=== PATIENT | female | born 1965 | race Caucasian/White ===

== ENCOUNTER 2018-02-08 20:03 | Emergency (ER) | payer MEDICAID, SELFPAY ==
[2018-02-08 20:20] VITALS: BP 127/77; PULSE 99; RESP 16; TEMP 37.2; O2SAT 95
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
[2018-02-08] MEDS: predniSONE 20 MG TAB 60 MG PO (20:34)
[2018-02-08] MEDS: LEVOFLOXACIN 500 MG, LEVOFLOXACIN 250 MG 750 MG PO (20:35)
[2018-02-08 20:36] VITALS: RESP 4; RESP 8
[2018-02-08] MEDS: Albuterol 2.5 MG/3 ML INH SOLN VIAL UPD (20:36)
[2018-02-08 21:20] VITALS: BP 125/78; PULSE 96; RESP 16; O2SAT 95
== END 2018-02-08 21:20 | disposition home or self-care (01) ==
PROVIDERS: Emergency Provider Emergency Medicine; PCP Internal Medicine
DX: J44.1 Chronic obstructive pulmonary disease with (acute) exacerbation (principal); F17.210 Nicotine dependence, cigarettes, uncomplicated
CPT/HCPCS: 94640; 99283; J7512; J7613

== ENCOUNTER 2018-06-06 16:59 | Emergency (ER) | payer MEDICAID, SELFPAY ==
[2018-06-06 17:03] VITALS: BP 154/82; PULSE 76; RESP 20; TEMP 37.1; O2SAT 96
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
--- NOTE | 2018-06-06 17:33 | DI.RAD_ITS ---
SYMPTOM/DIAGNOSIS: REDNESS, PAIN, ? OSTEOMYELITIS RIGHT TIB-FIB: Comparison is made with right ankle dated 07/09/15. No fracture is identified. There is no evidence of bony erosions. The patient is status post amputation at the level of the talocalcaneal joint. IMPRESSION: No acute abnormality.
[2018-06-06 18:09] LABS: HCT 47.8 % (36.0-46.0); Mean Corp. HGB Concentration 33.5 g/dL (32.0-36.0); Mean Corpuscular Hemoglobin 30.9 pg (27.0-33.0); Mean Corpuscular Volume 92.5 fL (80-95); Mean Platelet Volume 10.3 fL (8.0-11.0); Platelet Count 308 x1000/uL (130-400); RBC 5.17 m/cumm (4.00-5.20); RBC Distribution Width 14.3 % (11.7-14.6); White Blood Cell Count 10.06 k/cumm (4.4-10.8)
[2018-06-06 18:19] LABS: Anion Gap 10.4 mmol/L (3-11); BUN 12 mg/dL (7-18); C-Reactive Protein 1.49 mg/dL (0.0-0.3); CO2 26.6 mmol/L (21.0-32.0); CREATININE 0.87 mg/dL (0.55-1.02); Calcium 9.3 mg/dL (8.5-10.1); Chloride 102 mmol/L (98-107); Glucose 96 mg/dL (70-100); Potassium 3.8 mmol/L (3.5-5.1); Sodium 139 mmol/L (136-145)
[2018-06-06] MEDS: Clindamycin 150 MG CAP 450 MG PO ×2 (18:29→20:42)
[2018-06-06] MEDS: oxyCODONE 5 MG TAB PO (18:29)
--- NOTE | 2018-06-06 18:33 | NUR.NOTE ---
To Xray with Alessandra Guido Note:
[2018-06-06 18:45] LABS: ESR 20 MM/HR (0-30)
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
[2018-06-06 19:48] VITALS: BP 116/67; PULSE 68; RESP 14; TEMP 36.3; O2SAT 96
[2018-06-06] MEDS: Clindamycin 150 MG CAP (20:41)
[2018-06-06] MEDS: Clindamycin 300 MG CAP (20:43)
[2018-06-06] MEDS: oxyCODONE 5 MG TAB 10 MG PO (20:46)
== END 2018-06-06 20:53 | disposition home or self-care (01) ==
LOC: ER 20:39
PROVIDERS: Emergency Provider Physician Assistant; PCP Internal Medicine
DX: L03.115 Cellulitis of right lower limb (principal); Z89.431 Acquired absence of right foot
CPT/HCPCS: 36415; 80048; 85027; 85652; 99283; 73590; 86140

== ENCOUNTER 2019-03-19 00:47 | Outpatient (CLI) | payer MEDICAID, SELFPAY ==
--- NOTE | 2019-03-19 13:15 | DI.MAMMO_ITS ---
EXAM: MG MAMMO SCREENING CLINICAL HISTORY: SCREENING, Z12.39. TECHNIQUE: Mammograms were interpreted according to the usual protocol including computer analysis w [employer] CAD system, tomosynthesis and C-view imaging. COMPARISON: No exams were available for comparison FINDINGS: The breast tissue is of moderate radiodensity. There is no evidence of a mass. There are no suspici ous calcifications. When compared with prior examinations, there has been no significant interval ch kortney. Follow-up surveillance with annual screening mammography is recommended. IMPRESSION: No evidence of malignancy, category 1. This is a BI-RADS category B study.
== END 2019-03-19 01:07 ==
PROVIDERS: PCP Internal Medicine; Visit Provider Internal Medicine
DX: Z12.31 Encounter for screening mammogram for malignant neoplasm of breast (principal)
CPT/HCPCS: 77063; 77067

== ENCOUNTER 2019-03-21 13:37 | Outpatient (REF) | payer MEDICAID, SELFPAY ==
[2019-03-21 21:50] LABS: TSH (W/Ref FT4) 1.89 uIU/mL (0.36-3.74)
== END 2019-03-21 13:57 ==
LOC: NCHCN 13:37
PROVIDERS: PCP Internal Medicine; Visit Provider Nurse Practitioner Family
DX: E03.9 Hypothyroidism, unspecified (principal); L02.91 Cutaneous abscess, unspecified; J42 Unspecified chronic bronchitis
CPT/HCPCS: 84443

== ENCOUNTER 2019-04-01 07:24 | Emergency (ER) | payer MEDICAID, SELFPAY ==
[2019-04-01 07:33] VITALS: BP 137/80; PULSE 114; RESP 16; TEMP 36.2; O2SAT 99
--- NOTE | 2019-04-01 07:59 | ED.GENADUL_ITS ---
Discharge Plan Disposition Patient Disposition: HOME Condition: Fair Discharge Details Chief Complaint: Abd Prob Clinical Impression: Abdominal pain Primary Care Provider: Dionicio Grimm ED Provider: Noa Carter Home Meds and New Rx's Prescriptions: Continued meloxicam [Mobic] 7.5 MG tablet 15 mg PO DAILY RF: 0 gabapentin 400 MG capsule 800 mg PO TID RF: 0 omeprazole 20 MG capsule,delayed release(DR/EC) 1 cap PO DAILY RF: 0 fluticasone propionate [Flonase] 16 GM spray,suspension 1 bottle NS DAILY RF: 0 Zyrtec 10 MG capsule 10 mg PO DAILY RF: 0 albuterol sulfate [Proventil HFA] 1 PUFF HFA aerosol inhaler 2 puff Inhalation .Q4-6H PRN RF: 0 ropinirole 0.25 MG tablet 1 tab PO HS RF: 0 paroxetine HCl 30 MG tablet 30 mg PO DAILY RF: 0 bupropion HCl [Wellbutrin XL] 300 mg Tablet Extended Release 24 Hr 300 mg PO DAILY RF: 0 Spiriva with HandiHaler 18 mcg Capsule, W/Inhalation Device 18 mcg Inhalation PRN PRNRF: 0 Discharge Instructions Instructions: Abdominal Pain (ED) Additional Instructions: Your imaging and labs are reassuring today. Encourage hydration. Tylenol and ibuprofen as needed for discomfort. May try Gas-X to help with bloating. Please follow-up with primary care at the end of the week for reevaluation. If you develop fever/chills, increased pain, inability stay hydrated or other new/worsening symptoms please seek care urgently once again. Referrals: Dionicio Grimm MD [Primary Care Provider] - Medical Decision Making Patient is a 53-year-old female presenting today with chief complaint of abdominal discomfort that began 2 days ago. She is a history of anxiety, depression, diverticulitis, is an active smoker. She reports that this feels like diverticulitis. States that the pain is migratory which is. It is not made worse by eating, is not positional, is not worse with certain times a day. States that she did have 5 bowel movements yesterday but states that the switch from soft to more formed. Denies any liquidy bowel movements. Was on antibiotics last week for bronchitis. She does not know what antibiotic she was on. States that yesterday she did note read and her stool was concern for possible GI bleed as well. Hemoccult negative, normal rectal exam. Patient intially declined any analgesics, now requesting pain medication. Will give IV morphine. Review the labs. Patient has a slight white count of 11.06. BUN slightly elevated at 19. Glucose 123. Patient is intermittently been high like this historically. No findings on the urinalysis suggest infection. Contacted by the radiologist to review the CT scan and advised that there is no acute abnormalities noted. Discussed these findings with the patient's. Advised that she has had a change in her bowel habits, she may have infectious etiology. It is not watery diarrhea and does not seem very frequent, I do not feel that this is a high risk to be C. difficile. She will have close follow-up with primary care is appropriate. Advised Tylenol and ibuprofen as needed for discomfort. Advised against any narcotics at this point as this will Likely increase her symptoms. Advised she may try simethicone to help with the bloating sensation and gas pains. She was given strict return precautions. All other questions and concerns were addressed and she is in agreement this plan. HPI General Mode of arrival: ambulatory . Date/Time Provider Initiated Documentation: 04/01/19 07:51 . Limitations to Documentation: no limitations . Information obtained by: patient and RN notes reviewed . History of Present Monico pradhan 53 year old F presents to the emergency department with the chief complaint of abdominal pain, described as moderate, with intensity rated at 8. Quality is described as aching, and is localized to the abdomen. Patient reports no radiation. Patient started experiencing this day(s) (2) and it has been constant. No relieving factors improve symptom(s), No exacerbating factors reported . Patient notes diaphoresis and nausea/vomiting (intermittent nausea, no vomiting, currently no nausea); denies chest pain, cough, fever/chills, loss of appetite, rash, shortness of breath and weakness. Patient did receive the following treatments prior to arrival, none Related Data Home Medications Medication Instructions Recorded Confirmed fluticasone propionate [Flonase] 1 bottle NS DAILY 09/12/13 04/01/19 omeprazole 1 cap PO DAILY 09/12/13 04/01/19 Zyrtec 10 mg PO DAILY 03/09/15 04/01/19 meloxicam [Mobic] 15 mg PO DAILY tab-cap 07/09/15 04/01/19 albuterol sulfate [Proventil HFA] 2 puff INHALATION .Q4-6H PRN 08/28/15 04/01/19 paroxetine HCl 30 mg PO DAILY 08/28/15 04/01/19 ropinirole 1 tab PO HS 08/28/15 04/01/19 gabapentin 800 mg PO TID tab-cap 10/05/15 04/01/19 Spiriva with HandiHaler 18 mcg INHALATION PRN PRN 06/06/18 04/01/19 bupropion HCl [Wellbutrin XL] 300 mg PO DAILY 06/06/18 04/01/19 Allergies Allergy/AdvReac Type Severity Reaction Status Date / Time Penicillins Allergy Intermediate Hives Unverified 04/01/19 07:35 venlafaxine AdvReac Intermediate bad night Unverified 04/01/19 07:35 walker General Stated Complaint: Abd Prob AUBREY: 3 Review of Systems Constitutional Constitutional: Reports as per HPI, Denies chills, Denies fatigue, Denies fever(s) and Denies headache(s) ENT Ears, Nose, Mouth, and Throat: Denies headache(s) Cardiovascular Cardiovascular: Reports as per HPI, Denies chest pain and Denies dyspnea Respiratory Respiratory: Reports as per HPI, Denies cough and Denies dyspnea Gastrointestinal Gastrointestinal: Reports as per HPI Musculoskeletal Musculoskeletal: Reports as per HPI and Denies back pain Integumentary/Breasts Skin/Breast: Reports as per HPI and Denies rash Neurologic Neurologic: Reports as per HPI and Denies headache(s) Endocrine Endocrine: Denies fatigue [facility] Medical History Anxiety Depression Diverticulitis 09/12/13 seen in [facility] ED. Dx by CT. On Cipro and Flagyl. Menstrual spotting s/p [employer] endometrial ablation 01/2010 for menorrhagia. Has had brown discharge 4-5x/mo since then. Nasal polyp Tobacco use disorder Surgical History section X2. From chart record, no date.HE Colonoscopy - MAC (10/31/16) Endometrial Ablation 01/2010 [employer]. EP Excision Nodules (08/02/10) PIP joint R middle and ring fingers Ligation of fallopian tube from chart records, no date.HE Tonsillectomy From chart records, no date.HE Social History Smoking/Tobacco Use Status: Current every day Tobacco Type: cigarettes Drug use: Daily Do you feel safe in your relationship?: Yes Exam Const General: cooperative, healthy appearing, comfortable, no acute distress and well developed Nutritional Appearance: average body habitus and well nourished Orientation: alert and awake [facility] Head: normal to inspection Mouth: moist mucous membranes Resp Effort & Inspection: normal respiratory effort, able to speak in complete sentences and no respiratory distress Auscultation: clear to auscultation bilaterally, no rales, no rhonchi and no wheezes Cardio Rate: regular rate Rhythm: regular rhythm Heart Sounds: S1 normal and S2 normal GI Inspection: normal to inspection, no edema, non-distended, no incisions and no obesity Palpation: soft, no hepatosplenomegaly, not firm, no guarding, no masses and nontender Percussion: normal to percussion Auscultation: normal bowel sounds Rectal Exam - female: visual inspection normal, normal sphincter tone, No abnormal stool, No fecal impaction, No fissure, No heme positive stool, heme negative stool, No hemorrhoids, No laceration and No tenderness Back/Spine/Pelvis Back: no CVA tenderness Skin General skin exam: no rashes or lesions noted Trauma: no lacerations or abrasions Neuro General: alert and awake Cognition: normal cognition Speech: speech normal Gait: normal gait Extrem General: normal to inspection, no pedal edema, no calf tenderness and normal gait Psych Appearance: grossly normal and well kempt Mental Status: mental status grossly normal Speech and Movement: speech and movement normal Course Vital Signs Vital signs: Vital Signs Temperature 36.2 C L 04/01/19 07:33 Pulse 114 H 04/01/19 07:33 Respiratory Rate 16 04/01/19 07:33 Blood Pressure 137/80 04/01/19 07:33 Pulse Oximetry 99 04/01/19 07:33 Temperature 36.2 C L 04/01/19 07:33 Temperature Source Skin 04/01/19 07:33 Pulse 114 H 04/01/19 07:33 Respiratory Rate 16 04/01/19 07:33 Respiratory Effort Non-Labored 04/01/19 07:33 Blood Pressure 137/80 04/01/19 07:33 Blood Pressure Position Sitting 04/01/19 07:33 Pulse Oximetry 99 04/01/19 07:33 Oxygen Delivery Method Room Air 04/01/19 07:33 Oxygen Flow Rate 0 04/01/19 07:33 Pain Level 8 04/01/19 07:33
[2019-04-01] MEDS: Normal Saline 1,000 ML 1000 ML IV (08:00)
--- NOTE | 2019-04-01 08:08 | DI.CT_ITS ---
EXAM: CT ABDOMEN PELVIS W CLINICAL HISTORY: abdominal pain, hx of diverticulitis. TECHNIQUE: Imaging Protocol: Axial computed tomography images with coronal and sagittal reformatted images were created and reviewed CONTRAST MATERIAL: Intravenous: Omnipaque 350 Contrast volume:100 mL contrast route:IV - Oral: Yes COMPARISON: ABD PELVIS WITH CONTRAST from 11/29/2017 FINDINGS: ABDOMEN: Lung Bases: Normal where visualized. Liver: Normal density. There is again seen and enhancing mass in the left lobe of the liver consisten t with a benign hepatic hemangioma. No suspicious hepatic mass is seen total superior mesenteric and splenic veins are patent Gallbladder and biliary tract: No radiodense calculus or dilation. Pancreas: Normal density, no abnormal calcifications or inflammatory process. Spleen: Normal. Kidneys: Normal size, contour and axis. No radiodense stones or obstructive uropathy. There are tiny hypodensities present in the kidneys. They are too small for further characterization but likely ref lect small cysts. No suspicious renal masses are present. Adrenal glands: No masses seen. Abdominal Aorta: There is mild atherosclerosis present. No aneurysmal dilatation is present. No sig nificant abdominal or pelvic adenopathy is identified. PELVIS: Bladder: Symmetric distention, no gross wall thickening. Note is again made of a diverticulum arising from the anterior superior aspect of the urinary bladder. The reproductive organs are unremarkable. Bowel: No obstruction or bowel wall thickening. There diverticulosis of the colon but no evidence of acute diverticulitis. A normal appendix is visualized. Peritoneal cavity: No ascites, collection or mesenteric inflammatory response. Bones: Multilevel degenerative changes are present in the spine. Impression: Colonic diverticulosis but no evidence of acute diverticulitis. No evidence of an acute abdomen. The findings were discussed with the emergency department on the date of the examination. DATA REPOSITORY: All CT scans at this facility are submitted to the National Radiology Data Registry (NRDR) Dose Index Registry (DIR) with the [employer] ([employer]). RADIATION OPTIMIZATION: All CT scans at this facility use at least one of these dose optimization te chniques: automated exposure control; mA and/or kV adjustment per patient size (includes targeted exa ms where dose is matched to clinical indication); or iterative reconstruction.
[2019-04-01 08:25] LABS: Abs Immature Grans 0.02 k/cumm (0.0-0.09); Absolute Basophil Count 0.02 k/cumm (0.0-0.2); Absolute Eosinophil Count 0.12 k/cumm (0.0-0.7); Absolute Monocyte Count 0.73 k/cumm (0.11-0.7); Absolute Neutrophil Count 7.76 k/cumm (1.2-6.7); Basophils % 0.2; Eosinophils % 1.1; HGB 15.7 g/dL (12.0-15.5); Immature Grans % 0.2; Lymphocytes % 21.7; Mean Corp. HGB Concentration 32.7 g/dL (32.0-36.0); Mean Corpuscular Hemoglobin 30.3 pg (27.0-33.0); Mean Corpuscular Volume 92.5 fL (80-95); Mean Platelet Volume 11.2 fL (8.0-11.0); Monocytes % 6.6; Neutrophils % 70.2; Platelet Count 328 x1000/uL (130-400); RBC 5.19 m/cumm (4.00-5.20); RBC Distribution Width 14.5 % (11.7-14.6); White Blood Cell Count 11.06 k/cumm (4.4-10.8)
[2019-04-01] MEDS: Normal Saline Flush 10 ML SYR IVP ×2 (08:44→09:27)
[2019-04-01 08:45] VITALS: BP 150/79; PULSE 79; RESP 16; O2SAT 100
[2019-04-01 09:01] LABS: ALT 26 U/L (14-59); AST 15 U/L (15-37); Albumin 3.6 g/dL (3.4-5.0); Alkaline Phosphatase 86 U/L (46-116); Anion Gap 10.1 mmol/L (3-11); BUN 19 mg/dL (7-18); CO2 24.9 mmol/L (21.0-32.0); CREATININE 0.83 mg/dL (0.55-1.02); Calcium 8.8 mg/dL (8.5-10.1); Chloride 107 mmol/L (98-107); Glucose 123 mg/dL (70-100); Lipase 303 U/L (73-393); Sodium 142 mmol/L (136-145)
[2019-04-01 09:08] LABS: Bilirubin Negative (Negative); Blood Negative (Negative); Clarity Clear (Clear); Glucose Negative (Negative); Ketones Negative (Negative); Leukocyte Esterase Negative (Negative); Nitrite Negative (Negative); Urobilinogen 0.2 EU/dL (Up TO 0.2)
[2019-04-01 09:13] LABS: Bilirubin, Total 0.3 mg/dL (0.2-1.0); Total Protein 7.4 g/dL (6.4-8.2)
[2019-04-01] MEDS: Omnipaque 350 MG/ML 100 ML BTL IJ (09:26)
[2019-04-01] MEDS: Omnipaque 350 MG/ML 50 ML BTL PO (09:27)
[2019-04-01] MEDS: Breeza Beverage 473 ML BTL PO (09:27)
[2019-04-01 10:30] VITALS: BP 142/80; PULSE 74; RESP 18; TEMP 36.7; O2SAT 98
--- NOTE | 2019-04-02 07:34 | NUR.NOTE ---
Nursing Note: 0727 patient called stating that she was seen yesterday for abd pain and we did not find a cause for it. She remembered that she ate a bad lemon and was wondering if it could be food poisoning? Her abd is still sore and wonders if there is anything more she can do. Spoke with Karyna who remembered the patient. Told the patient that she could return to ED for re-evaluation. Noa Carter who evaluated her will be in later todeay if she wanted to speak with her. To call the [facility] and try to get an appt with them for follow up for another evaluation. She stated she would try the [facility]. Ericka Baker.
== END 2019-04-01 10:36 | disposition home or self-care (01) ==
PROVIDERS: Emergency Provider Physician Assistant; PCP Internal Medicine
DX: R10.9 Unspecified abdominal pain (principal)
CPT/HCPCS: 36415; 80053; 83690; 96361; 96374; 99285; 74177; 81003; 85025; 99284; J3490; Q9967

== ENCOUNTER 2019-05-31 14:40 | Emergency (ER) | payer MEDICAID, SELFPAY ==
[2019-05-31 14:43] VITALS: BP 140/69; PULSE 81; RESP 18; TEMP 36.6; O2SAT 98
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
--- NOTE | 2019-05-31 16:34 | NUR.NOTE ---
Nursing Note: Referral faxed to Podiatry, Dr. Taylor for follow up. MD note and radiology report faxed. Ericka Baker.
== END 2019-05-31 15:57 | disposition home or self-care (01) ==
PROVIDERS: Emergency Provider Emergency Medicine; PCP Internal Medicine
DX: R22.41 Localized swelling, mass and lump, right lower limb (principal); L53.9 Erythematous condition, unspecified; Z89.431 Acquired absence of right foot
CPT/HCPCS: 99283; 73630

== ENCOUNTER 2019-06-01 12:12 | Emergency (ER) | payer MEDICAID, SELFPAY ==
[2019-06-01 12:15] VITALS: BP 140/64; PULSE 90; RESP 18; TEMP 36.7; O2SAT 98
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
== END 2019-06-01 12:50 | disposition home or self-care (01) ==
PROVIDERS: Emergency Provider Physician Assistant; PCP Internal Medicine
DX: L03.115 Cellulitis of right lower limb (principal); L02.611 Cutaneous abscess of right foot
CPT/HCPCS: 99283

== ENCOUNTER 2020-02-06 15:51 | Emergency (ER) | payer MEDICAID, SELFPAY ==
[2020-02-06 15:55] VITALS: BP 176/91; PULSE 96; RESP 18; TEMP 36.2; O2SAT 97
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
[2020-02-06] MEDS: Acetaminophen 500 MG TAB 1000 MG PO (16:15)
[2020-02-06] MEDS: Hydrocortisone 1% CR 30 GM TUBE TP (16:16)
[2020-02-06 16:24] VITALS: RESP 20
[2020-02-06 16:29] LABS: Bilirubin Negative (Negative); Blood Negative (Negative); Clarity Clear (Clear); Glucose Negative (Negative); Ketones Negative (Negative); Leukocyte Esterase Small (Negative); Nitrite Negative (Negative); Specific Gravity 1.015 (1.005-1.025); Urobilinogen 0.2 EU/dL (Up TO 0.2)
--- NOTE | 2020-02-06 16:32 | DI.RAD_ITS ---
EXAM: XR LUMBAR SPINE AP, LAT CLINICAL HISTORY: L low back/SI pain TECHNIQUE: COMPARISON: No exams were available for comparison FINDINGS: Three views were obtained. There are mild degenerative changes of the SI joints bilaterally. There is some loss of height of intervertebral disc spaces at multiple levels throughout the lower thoracic and lumbar spine, particularly at L4-5 and L5-S1. There are mild hypertrophic degenerative changes of the vertebral endplates and facet joints at multiple levels. No spondylolysis or spondylolisthesis. IMPRESSION: Degenerative changes as described above. No evidence of acute fracture.
[2020-02-06 16:38] LABS: Bacteria Many HPF (Negative); Epithelial Cells Few HPF (Negative); RBC 0-2 HPF (0-2)
[2020-02-06 16:39] LABS: C & S Indicated? Yes; Casts Negative LPF (Negative); Crystals Negative HPF (Negative); Mucus Negative (Negative)
--- NOTE | 2020-02-06 17:00 | DI.VRAD_ITS ---
PROCEDURE INFORMATION: Exam: XR Lumbosacral Spine, 2 or 3 Views Exam date and time: 02/06/2020 4:32 PM Age: 54 years old Clinical indication: Other: L low back pain/si pain TECHNIQUE: Imaging protocol: XR of the lumbosacral spine, 2 or 3 views. COMPARISON: No relevant images were readily available for comparison purposes. FINDINGS: Vertebrae: 5 lumbar vertebral bodies are identified in normal height and alignment. No significant listhesis. Mild multi level degenerative changes of the lumbar spine are present. Sacrum/coccyx: Mild degenerative changes of both SI joints. Gastrointestinal tract: Nonobstructive appearance of the visualized bowel. Soft tissues: Unremarkable. Other findings: No acute fractures or dislocations. IMPRESSION: Mild degenerative changes of the lumbar spine as well as both sacroiliac joints without acute fracture or dislocation. Dictated and Authenticated by: Dionicio Donnelly MD. Ordering:RAFA Escobedo MD
== END 2020-02-06 17:26 | disposition home or self-care (01) ==
PROVIDERS: Emergency Provider Emergency Medicine; PCP Internal Medicine
DX: N39.0 Urinary tract infection, site not specified (principal); M54.5 Low back pain; S10.86XA Insect bite of other specified part of neck, initial encounter; W57.XXXA Bitten or stung by nonvenomous insect and other nonvenomous arthropods, initial encounter
CPT/HCPCS: 99283; 72100; 81003; 81015; 87086

== ENCOUNTER 2020-02-08 12:49 | Emergency (ER) | payer MEDICAID, SELFPAY ==
[2020-02-08 13:01] VITALS: BP 107/66; PULSE 96; RESP 14; TEMP 36.6; O2SAT 95
[2020-02-08] MEDS: Ketorolac 30 MG/ML VIAL IVP (13:30)
[2020-02-08] MEDS: Normal Saline Flush 10 ML SYR IVP (13:30)
[2020-02-08 13:35] LABS: Abs Immature Grans 0.04 10^3/uL (0.0-0.06); Absolute Basophil Count 0.02 10^3/uL (0.0-0.2); Absolute Eosinophil Count 0.33 10^3/uL (0.0-0.7); Absolute Lymphocyte Count 0.67 10^3/uL (1.2-3.4); Absolute Monocyte Count 0.48 10^3/uL (0.1-0.8); Absolute Neutrophil Count 8.33 10^3/uL (1.2-6.7); Basophils % 0.2; Bilirubin Negative (Negative); Blood Negative (Negative); Clarity Clear (Clear); Eosinophils % 3.3; Glucose Negative (Negative); HCT 48.9 % (36.0-46.0); HGB 15.7 g/dL (11.2-15.7); Immature Grans % 0.4; Ketones Negative (Negative); Leukocyte Esterase Trace (Negative); Lymphocytes % 6.8; MCH 29.8 pg (27.0-33.0); MCHC 32.1 % (32.0-36.0); MPV 10.4 fL (8.0-11.0); Monocytes % 4.9; Neutrophils % 84.4; Nitrite Negative (Negative); Nucleated RBC 0 %; Platelet Count 233 10^3/uL (130-400); RBC 5.26 10^6/uL (3.93-5.22); RDW 13.4 % (11.7-14.6); RDW-SD 46.1 fL; WBC 9.87 10^3/uL (4.4-10.8); pH 7.5 (5-8)
[2020-02-08 13:43] LABS: Epithelial Cells Few HPF (Negative); RBC 0-2 HPF (0-2)
[2020-02-08 13:44] LABS: Bacteria Few HPF (Negative); C & S Indicated? Yes; Casts Negative LPF (Negative); Crystals Negative HPF (Negative); Mucus Negative (Negative)
[2020-02-08 13:51] LABS: ALT 50 U/L (14-59); AST 40 U/L (15-37); Albumin 3.3 g/dL (3.4-5.0); Alkaline Phosphatase 84 U/L (46-116); Anion Gap 7.1 mmol/L (3-11); BUN 9 mg/dL (7-18); Bilirubin, Total 0.4 mg/dL (0.2-1.0); CO2 25.9 mmol/L (21.0-32.0); CREATININE 0.87 mg/dL (0.55-1.02); Calcium 8.8 mg/dL (8.5-10.1); Chloride 101 mmol/L (98-107); Glucose 147 mg/dL (74-106); Lipase 100 U/L (73-393); Potassium 3.8 mmol/L (3.5-5.1); Sodium 134 mmol/L (136-145); Total Protein 6.7 g/dL (6.4-8.2)
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
[2020-02-08 14:40] VITALS: BP 113/68; PULSE 96; RESP 16; O2SAT 95
== END 2020-02-08 14:39 | disposition home or self-care (01) ==
PROVIDERS: Emergency Provider Physician Assistant; PCP Internal Medicine
DX: M54.5 Low back pain (principal)
CPT/HCPCS: 36415; 80053; 83690; 96374; 99284; 81003; 81015; 85025; 87086; J1885

== ENCOUNTER 2020-07-21 17:01 | Outpatient (REF) | payer MEDICAID, SELFPAY ==
[2020-07-21 18:30] LABS: Bilirubin Negative (Negative); Blood Trace-intact (Negative); Clarity Cloudy (Clear); Glucose Negative (Negative); Ketones Negative (Negative); Leukocyte Esterase Small (Negative); Nitrite Positive (Negative); Urobilinogen 0.2 EU/dL (Up TO 0.2); pH 8.5 (5-8)
[2020-07-21 18:57] LABS: Bacteria Many HPF (Negative); C & S Indicated? Yes; Casts Negative LPF (Negative); Crystals Negative HPF (Negative); Epithelial Cells Negative HPF (Negative); Mucus Heavy (Negative); Other Cells Negative (Negative); RBC 0-2 HPF (0-2); WBC >50 HPF (0-5)
[2020-07-23 18:28] LABS: COVID-19 RT-PCR Result NEGATIVE (Negative)
== END 2020-07-21 17:21 ==
LOC: NCHCN 17:01
PROVIDERS: PCP Internal Medicine; Visit Provider Nurse Practitioner Family
DX: R50.9 Fever, unspecified (principal); R30.0 Dysuria
CPT/HCPCS: 87077; U0003; 81003; 81015; 87086; 87186

== ENCOUNTER 2020-08-14 13:55 | Outpatient (REF) | payer MEDICAID, SELFPAY ==
[2020-08-14 13:33] LABS: HCT 46.3 % (36.0-46.0); HGB 14.9 g/dL (11.2-15.7); MCHC 32.2 % (32.0-36.0); MCV 90.1 fL (80-95); MPV 10.9 fL (8.0-11.0); Platelet Count 354 10^3/uL (130-400); RBC 5.14 10^6/uL (3.93-5.22); RDW 13.6 % (11.7-14.6); RDW-SD 45.4 fL; WBC 6.71 10^3/uL (4.4-10.8)
[2020-08-14 14:02] LABS: ALT 22 U/L (14-59); AST 14 U/L (15-37); Albumin 3.4 g/dL (3.4-5.0); Alkaline Phosphatase 89 U/L (46-116); Anion Gap 9.9 mmol/L (3-11); BUN 9 mg/dL (7-18); Bilirubin, Total 0.3 mg/dL (0.2-1.0); CO2 26.1 mmol/L (21.0-32.0); CREATININE 0.8 mg/dL (0.55-1.02); Calcium 9.4 mg/dL (8.5-10.1); Calculated LDL 170 mg/dL (<100); Chloride 105 mmol/L (98-107); Cholesterol 249 mg/dL (<200); Glucose 106 mg/dL (74-106); HDL Cholesterol 62 mg/dL (40-60); Potassium 4.1 mmol/L (3.5-5.1); Sodium 141 mmol/L (136-145); Total Protein 6.5 g/dL (6.4-8.2); Triglyceride 86 mg/dL (<150)
== END 2020-08-14 13:56 | disposition home or self-care (01) ==
LOC: NCHCN 13:55
PROVIDERS: PCP Internal Medicine; Visit Provider Internal Medicine
DX: F32.9 Major depressive disorder, single episode, unspecified (principal); F17.200 Nicotine dependence, unspecified, uncomplicated; R23.8 Other skin changes; G54.6 Phantom limb syndrome with pain; E78.5 Hyperlipidemia, unspecified
CPT/HCPCS: 80053; 80061; 85027; 85610

== ENCOUNTER 2020-08-28 08:57 | Emergency (ER) | payer MEDICAID, SELFPAY ==
[2020-08-28 09:02] VITALS: BP 155/99; PULSE 126; RESP 18; TEMP 36.7; O2SAT 97
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
[2020-08-28] MEDS: Acetaminophen 500 MG TAB 1000 MG PO (09:43)
[2020-08-28] MEDS: Lidocaine 2% Multi-Dose 50 ML VIAL (09:43)
[2020-08-28] MEDS: Benzocaine 20% Gel 30 GM JAR MM (09:55)
[2020-08-28 10:13] VITALS: BP 148/88; PULSE 100; RESP 16; TEMP 36.8; O2SAT 96
== END 2020-08-28 10:17 | disposition home or self-care (01) ==
PROVIDERS: Emergency Provider Physician Assistant; PCP Internal Medicine
DX: K04.7 Periapical abscess without sinus (principal); K03.81 Cracked tooth
CPT/HCPCS: 64400

== ENCOUNTER 2020-12-30 14:33 | Outpatient (REF) | payer MEDICAID, SELFPAY | END 2020-12-30 14:34 | disposition home or self-care (01) | LOC: NCHCN 14:33 | PROVIDERS: PCP Internal Medicine; Visit Provider Family Medicine | DX: M54.9 Dorsalgia, unspecified (principal) | CPT/HCPCS: 87086 ==

== ENCOUNTER 2021-05-05 01:07 | Outpatient (CLI) | payer MEDICAID, SELFPAY ==
--- NOTE | 2021-05-05 | DI.MAMMO_ITS ---
Exam(s) MAMMO SCREENING EXAM: MAMMO SCREENING CLINICAL HISTORY: SCREENING,HEALTH MAINTENANCE, Z00.8. TECHNIQUE: Bilateral full field digital CC and MLO mammographic images were obtained with 3D tomosyn thesis and utilizing computer aided detection (CAD). COMPARISON: Prior mammograms dating back to 2015, the most recent being March 2019. FINDINGS: There has been no significant change in the appearance and distribution of the fibroglandular tissue. There are no new spiculated masses nor malignant appearing microcalcification groups. There is no significant architectural distortion nor skin thickening-retraction. IMPRESSION: No radiographic evidence of malignancy. BI-RADS Category 1 - Negative Breast Density - Category B - Scattered areas of fibroglandular density Breast density Category C or D implies that the patient has dense breast tissue. Dense breast tissue can make it harder to find cancer on a mammogram. Dense breast tissue is also associated with an incr eased risk of breast cancer. This information about the result of the mammogram report was provided to the patient to raise their awareness. Use this report when you speak with the patient about their risks for breast cancer, which includes their family history. At that time, you may recommend additional screening tests (Ultrasoun d or MRI) as these tests may add significant information. A negative radiographic report should not delay biopsy if a dominant or clinically suspicious mass is present. Up to ten percent of cancers are not identified on mammography. A negative report may reinforce clinical impression. Adenosis and dense breasts may obscure an underlying neoplasm. False positive reports average 6 to 10%. Patient will receive a letter notifying them of these results.
== END 2021-05-05 01:27 ==
PROVIDERS: PCP Internal Medicine; Visit Provider Family Medicine
DX: Z12.31 Encounter for screening mammogram for malignant neoplasm of breast (principal)
CPT/HCPCS: 77063; 77067

== ENCOUNTER 2021-05-26 08:38 | Emergency (ER) | payer MEDICAID, SELFPAY ==
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
[2021-05-26 08:44] VITALS: BP 146/80; PULSE 82; RESP 18; TEMP 36.7; O2SAT 98
--- NOTE | 2021-05-26 09:00 | DI.RAD_ITS ---
Exam(s) XR HAND LT COMPLETE EXAM: XR HAND LT COMPLETE CLINICAL HISTORY: fall/hand pain TECHNIQUE: COMPARISON: No exams were available for comparison FINDINGS: Three views were obtained. There is no evidence of acute fracture or dislocation. IMPRESSION: RADIATION DOSE DELIVERED: Total DLP
[2021-05-26] MEDS: Acetaminophen 500 MG TAB 1000 MG PO (09:06)
[2021-05-26 09:34] VITALS: BP 146/80; PULSE 82; RESP 18; TEMP 36.7; O2SAT 98
== END 2021-05-26 09:36 | disposition home or self-care (01) ==
PROVIDERS: Emergency Provider Physician Assistant; PCP Family Medicine
DX: S69.82XA Other specified injuries of left wrist, hand and finger(s), initial encounter (principal); W18.39XA Other fall on same level, initial encounter
CPT/HCPCS: 29125; 99283; 73130

== ENCOUNTER 2021-07-30 11:46 | Outpatient (REF) | payer MEDICAID, SELFPAY ==
[2021-08-02 10:27] LABS: Hepatitis C Ab w Rflx HCV PCR Negative (Negative)
[2021-08-03 19:26] LABS: Varicella IgG Antibody Negative (See Note)
== END 2021-07-30 11:47 | disposition home or self-care (01) ==
LOC: NCHCN 11:46
PROVIDERS: PCP Family Medicine; Visit Provider Family Medicine
DX: Z01.84 Encounter for antibody response examination (principal); Z11.59 Encounter for screening for other viral diseases
CPT/HCPCS: 86787; 86803

== ENCOUNTER 2021-08-25 10:18 | Outpatient (REF) | payer MEDICAID, SELFPAY ==
--- NOTE | 2021-08-25 09:30 | PAPFT_PTH ---
PATIENT: Deepali Ferraro LOC: [facility]#:[id number] AGE/SX: 56/F ROOM: RE08/25/[address]: Rafat Dietz : 1965 BED: DIS: 08/25/2021 SPEC #: [id number] RECD: 08/25/21 16:56 STATUS: [facility] #: [id number] AMADA: 08/25/21 09:[address]: Rafat Dietz DEPT: [facility] Cytology RECD BY: Елена Byrne Tissues: 1 - CX/ENDOCX FOR PAP SMEARS Procedures: PAP THIN PREP/UVM Screening HPV DNA PROBE Comments: [id number]
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
== END 2021-08-25 10:19 | disposition home or self-care (01) ==
LOC: NCHCN 10:18
PROVIDERS: PCP Family Medicine; Visit Provider Family Medicine
DX: Z12.4 Encounter for screening for malignant neoplasm of cervix (principal); Z11.51 Encounter for screening for human papillomavirus (HPV)
CPT/HCPCS: 88142; 87624

== ENCOUNTER 2021-09-10 02:44 | Outpatient (CLI) | payer MEDICAID, SELFPAY ==
--- NOTE | 2021-09-10 10:42 | DI.CTLCSR_ITS ---
Exam(s) CT CHEST LUNG CANCER SCREEN EXAM: CT CHEST LUNG CANCER SCREEN CLINICAL HISTORY: SCREENING FOR LUNG CA, SMOKER, F17.200. TECHNIQUE: Imaging Protocol: Low Dose Technique CONTRAST MATERIAL: None COMPARISON: No exams were available for comparison FINDINGS: CHEST: LUNGS: There are no ominous pulmonary nodules. There are no confluent infiltrates. No pleural effusi ons. MEDIASTINUM: There is no obvious hilar nor mediastinal adenopathy. CARDIAC: Heart size is normal. There is no pericardial effusion.Caliber of the thoracic aorta is wit hin normal limits. OTHER: OSSEOUS: No significant osseous lesions.. IMPRESSION: 1. No significant pulmonary nodules. No infiltrates. No pleural effusions. 2. No obvious intrathoracic adenopathy. 3. Lung RADS Cat 1 - Negative: No nodules and definitely benign nodules Lung-RADS 1.0 CATEGORIES: Category 0 - Prior chest CT exam(s) being located for comparison. Category 1 - Annual screening in 12 months. No nodules or definitely benign nodules. Category 2 - Annual screening in 12 months. Benign appearance. Nodules with low likelihood of becomin g active cancer. Category 3 - 6-month follow-up. Probably benign. Short-term follow-up suggested. Nodules with low lik elihood of becoming active cancer. Category 4A - 3-month follow-up and CT/PET if >8 mm in size. Suspicious finding. Findings which requi re additional testing. Category 4B - Findings which require additional testing and tissue sampling. Category 4X - Category 3 or 4 nodules with additional features or imaging findings that increases the suspicion of malignancy. Modifier S- Potentially clinically significant findings (non lung cancer) RADIATION DOSE DELIVERED: Total DLP CTDIvol DATA REPOSITORY: All CT scans at this facility are submitted to the National Radiology Data Registry (NRDR) Dose Index Registry (DIR) with the [employer] (ACR). RADIATION OPTIMIZATION: All CT scans at this facility use at least one of these dose optimization te chniques: automated exposure control; mA and/or kV adjustment per patient size (includes targeted exa ms where dose is matched to clinical indication); or iterative reconstruction.
== END 2021-09-10 03:04 ==
PROVIDERS: PCP Family Medicine; Visit Provider Family Medicine
DX: Z12.2 Encounter for screening for malignant neoplasm of respiratory organs (principal); F17.210 Nicotine dependence, cigarettes, uncomplicated
CPT/HCPCS: 71271

== ENCOUNTER 2022-01-11 10:43 | Emergency (ER) | payer MEDICAID, SELFPAY | END 2022-01-11 11:00 | disposition LWBS | PROVIDERS: PCP Family Medicine | DX: Z53.21 Procedure and treatment not carried out due to patient leaving prior to being seen by health care provider (principal) ==

== ENCOUNTER 2022-02-08 19:38 | Outpatient (REF) | payer MEDICAID, SELFPAY ==
[2022-02-08 20:34] LABS: Abs Immature Grans 0.01 10^3/uL (0.0-0.06); Absolute Basophil Count 0.04 10^3/uL (0.0-0.2); Absolute Eosinophil Count 0.17 10^3/uL (0.0-0.7); Absolute Lymphocyte Count 4.41 10^3/uL (1.2-3.4); Absolute Monocyte Count 0.59 10^3/uL (0.1-0.8); Absolute Neutrophil Count 3.36 10^3/uL (1.2-6.7); Basophils % 0.5; HCT 41.8 % (36.0-46.0); HGB 13.7 g/dL (11.2-15.7); Immature Grans % 0.1; Lymphocytes % 51.4; MCHC 32.8 % (32.0-36.0); MCV 92 fL (80-95); MPV 11.7 fL (8.0-11.0); Monocytes % 6.9; Neutrophils % 39.1; Platelet Count 279 10^3/uL (130-400); RBC 4.56 10^6/uL (3.93-5.22); RDW 13.3 % (11.7-14.6); RDW-SD 45.9 fL; WBC 8.58 10^3/uL (4.4-10.8)
[2022-02-08 20:38] LABS: ESR 8 mm/hr (0-30)
== END 2022-02-08 19:39 | disposition home or self-care (01) ==
LOC: LBN 19:38
PROVIDERS: PCP Family Medicine; Visit Provider Nurse Practitioner Family
DX: M79.671 Pain in right foot (principal)
CPT/HCPCS: 85652; 85025

== ENCOUNTER → 2022-02-08 21:50 | Outpatient (CLI) | payer MEDICAID, SELFPAY ==
--- NOTE | 2022-02-08 15:06 | DI.RAD_ITS ---
Exam(s) XR FOOT RT COMPLETE EXAM: XR FOOT RT COMPLETE CLINICAL HISTORY: AMPUTATED AT MIDFOOT-Z89.439, PAIN IN RIGHT FOOT-M79.671. TECHNIQUE: 2D digital imaging was performed. Three views. COMPARISON: 09 July 2015. FINDINGS: There is again noted to be prior amputation at the level of the talus and calcaneus. There again note d to be a few tiny metallic fragments related to prior surgery. There is marked soft tissue swelling over the stump. No abnormal gas collection is seen. There is a question of some cortical thinning and increased lucency in the distal aspect of the calcaneus compared with the prior exam. Findings could represent osteomyelitis. IMPRESSION: Question of bony erosion at the distal calcaneus which could represent osteomyelitis. DATA REPOSITORY: RADIATION DOSE DELIVERED:
== END ==
PROVIDERS: PCP Family Medicine; Visit Provider Nurse Practitioner Family
DX: R94.8 Abnormal results of function studies of other organs and systems (principal); M79.671 Pain in right foot
CPT/HCPCS: 73630

== ENCOUNTER 2022-04-04 08:24 | Emergency (ER) | payer MEDICAID, SELFPAY ==
[2022-04-04 08:30] VITALS: BP 153/80; PULSE 93; RESP 18; TEMP 36; O2SAT 100
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
--- NOTE | 2022-04-04 09:42 | DI.RAD_ITS ---
Exam(s) XR FOOT RT COMPLETE EXAM: XR FOOT RT COMPLETE CLINICAL HISTORY: h/o amputation, now with pain. TECHNIQUE: 2D digital imaging was performed. Three views. COMPARISON: CR XR FOOT RT COMPLETE from 02/08/2022 FINDINGS: BONES: Status post amputation at the level of the talus and calcaneus. No acute fracture is present. No bony destructive lesion is seen. JOINTS: No dislocation present. SOFT TISSUE: Swelling. No gas collection. IMPRESSION: Stable appearance status post amputation. No gross evidence of osteomyelitis. DATA REPOSITORY: RADIATION DOSE DELIVERED:
[2022-04-04 10:32] LABS: Abs Immature Grans 0.01 10^3/uL (0.0-0.06); Absolute Basophil Count 0.02 10^3/uL (0.0-0.2); Absolute Eosinophil Count 0.13 10^3/uL (0.0-0.7); Absolute Lymphocyte Count 3.14 10^3/uL (1.2-3.4); Absolute Monocyte Count 0.34 10^3/uL (0.1-0.8); Absolute Neutrophil Count 3.28 10^3/uL (1.2-6.7); Basophils % 0.3; Eosinophils % 1.9; HCT 45.2 % (36.0-46.0); HGB 14.3 g/dL (11.2-15.7); Immature Grans % 0.1; Lymphocytes % 45.4; MCH 29.5 pg (27.0-33.0); MCHC 31.6 % (32.0-36.0); MCV 93 fL (80-95); MPV 10.3 fL (8.0-11.0); Monocytes % 4.9; Neutrophils % 47.4; Platelet Count 300 10^3/uL (130-400); RBC 4.85 10^6/uL (3.93-5.22); RDW 13.3 % (11.7-14.6); RDW-SD 45.7 fL; WBC 6.92 10^3/uL (4.4-10.8)
[2022-04-04 10:36] LABS: ESR 18 mm/hr (0-30)
[2022-04-04 10:50] LABS: ALT 19 U/L (14-59); AST 12 U/L (15-37); Albumin 3.6 g/dL (3.4-5.0); Alkaline Phosphatase 79 U/L (46-116); Anion Gap 4.7 mmol/L (3-11); BUN 8 mg/dL (7-18); Bilirubin, Total 0.2 mg/dL (0.2-1.0); C-Reactive Protein 0.29 mg/dL (0.0-0.3); CO2 31.3 mmol/L (21.0-32.0); CREATININE 0.8 mg/dL (0.55-1.02); Chloride 106 mmol/L (98-107); Estimated GFR 86.96 (mL/min/1.73m2); Glucose 101 mg/dL (74-106); Potassium 4.2 mmol/L (3.5-5.1); Sodium 142 mmol/L (136-145); Total Protein 6.9 g/dL (6.4-8.2)
== END 2022-04-04 12:09 | disposition home or self-care (01) ==
PROVIDERS: Emergency Provider Student in an Organized Health Care Education/Training Program; PCP Family Medicine
DX: M79.671 Pain in right foot (principal); Z89.431 Acquired absence of right foot; F17.210 Nicotine dependence, cigarettes, uncomplicated
CPT/HCPCS: 36415; 80053; 85652; 99283; 73630; 85025; 86140; 99282

== ENCOUNTER 2022-06-21 09:37 | Day surgery (SDC) | payer MEDICAID, SELFPAY ==
--- NOTE | 2022-06-20 21:36 | W.PM.DSUDISC ---
Date of service: 06/21/22 Time of Service: 11:46 Discharge Plan Disposition Patient Disposition: Home Condition: Good Discharge Details Reason For Visit: EGD and colonoscopy Attending Provider: Roosevelt Carmona Primary Care Provider: Rafat Dietz Home Meds and New Rx's Prescriptions: New sucralfate [Carafate] 1 gram tablet 1 g PO QAC Qty: 30 2RF Rx Instructions: Take 1 tablet by mouth every morning Continued gabapentin 400 MG capsule 400 mg PO BID lidocaine [Lidoderm] 5 % adhesive patch,medicated 1 patch topical DAILY Rx Instructions: leave on most painful area for up to 12 hrs bupropion HCl 300 mg tablet extended release 24 hr 300 mg PO QAM albuterol sulfate [Proventil HFA] 1 PUFF HFA aerosol inhaler 2 puff Inhalation .Q4-6H PRN cetirizine 10 mg tablet 10 mg PO DAILY PRN Label Comments: TAKE 1 TABLET BY MOUTH ONCE DAILY pantoprazole 40 mg tablet,delayed release (DR/EC) 40 mg PO DAILY Label Comments: TAKE 1 TABLET BY MOUTH DAILY duloxetine 30 mg capsule,delayed release(DR/EC) 30 mg PO DAILY Label Comments: TAKE 1 CAPSULE BY MOUTH DAILY Discontinued polyethylene glycol 3350 17 gram/dose powder 238 g PO ONCE Qty: 238 0RF Rx Instructions: take per colonoscopy instructions bisacodyl [Dulcolax (bisacodyl)] 5 mg tablet,delayed release (DR/EC) 5 mg PO ONCE Qty: 4 0RF Rx Instructions: take per colonoscopy instructions Discharge Instructions Additional Instructions: 1. If tolerated, consume a soft, low fiber diet for 1-2 days. 2[address] Do not drive, drink alcohol, operate machinery, make critical decisions, or do activities that require coordination or balance for 24 hours. 3. Because air was put into your colon during the procedure, expelling air from your rectum (passing gas or farting) is normal. 4. You may not have a bowel movement for 1-3 days because of the colonoscopy prep. This is normal. 5. You may experience a sore throat for 24 to 48 hours. You may use throat lozenges or gargle with warm salt water to relieve the discomfort. 6. Because air was put into your stomach during the procedure, you may experience some belching. 7. Go directly to the emergency room if you notice any of the following: Develop chills (warm to touch), or if you have a thermometer and your temperature is above 101 Difficulty breathing or difficultly swallowing Persistent vomiting Severe abdominal pain, other than gas cramps Severe chest pain Black, tarry stools Any bleeding ? exceeding one tablespoon 8. Call your physician if the site where your intravenous was started becomes red, swollen, painful, and warm to touch. 9. Your physician has reviewed your pre-procedure medications. Please continue to take those medications as previously ordered. You will be given specific information/education regarding any changes to your medications before leaving. 10. Add Carafate to your medications. Take as instructed. Activity:: Activity as Tolerated Diet:: As Tolerated Discharge Orders Discharge Orders: Discharge Order (Routine); Ordered 06/20/22 Ordered By: Roosevelt Carmona DS: Diagnosis Discharge Diagnosis (1) Colorectal polyp detected on colonoscopy: Status: Acute Asessment and Plan: I will contact you with results of the pathology report once the biopsies have been reviewed (2) GERD (gastroesophageal reflux disease): Status: Chronic Asessment and Plan: Add Carafate to your medications. Take 1 pill every morning
--- NOTE | 2022-06-20 21:37 | COLE_ITS ---
Date of service: 06/21/22 Time of Service: 11:30 Colonoscopy Report Date of procedure: 06/21/22 Pre-op diagnosis general: GERD and screening colonoscopy Post-op diagnosis procedure note: other (Gastritis, colorectal polyps) Procedure: EGD and colonoscopy Surgeon: Roosevelt Carmona Anesthesia Type: General:No Airway Estimated blood loss (mL): 30 Pathology: other (Biopsies of duodenum, gastric antrum, gastric body, gastric ulcer, cecal polyp, polyp at 70 cm, 45 cm 25 cm) Complications: None Disposition: same day Prep: Miralax/Dulcolax Procedure Start Time: 10:52 Procedure End Time: 11:24 Retraction Time: 18 Findings: Gastritis, with mild gastric ulcer adjacent to the GE junction. Colorectal polyps in the cecum, 70 cm, 45 cm, 25 cm Procedure Description: After the initiation of monitored anesthetic care, and with the assistance of a bite block, I advanced a standard gastroscope through the mouth past the hypopharynx and into the esophagus.? Under the direct vision of the scope, I advanced down the esophagus into the stomach.? Once I entered the stomach, I performed a brief inspection, followed by retroflexion towards the gastric cardia.? There was a subcentimeter ulcer right along the GE junction.? After that, I gently advanced the scope around the incisura angularis and examined the pylorus.? This appeared normal.? Next, I advanced the scope through the pylorus into the duodenum.? The mucosa was pink and healthy appearing.? There were no abnormalities.? I was able to visualize bile draining into the duodenum through the ampulla Vater. ?I performed random biopsies of the duodenum. Next, I began retracting the endoscope.? I brought the endoscope back into the stomach. All evidence of gastritis, with some mild erythema, mostly along gastric body. I performed biopsies of the gastric antrum as well as the gastric body. Finally, I returned to retroflexion and biopsied the ulcer at the GE junction.? I then gently desufflated some of the stomach, and withdrew the endoscope into the distal esophagus. The GE junction was approximately 37 cm, and the Z-line was mildly irregular at 35 cm. I did perform some biopsies of the GE junction based on the irregularity of the Z-line. ?Finally, I withdrew the scope along the length of the esophagus taking great care to examine the entirety of the mucosa.? I did not appreciate any abnormalities. Next, we moved to Deepali into the left lateral decubitus position. I performed an external anorectal exam.? Perineum and skin were normal, as was the anal verge.? There was no evidence of external hemorrhoids.? Next, I performed a digital rectal exam.? This was normal.? Next, I advanced a colonoscope into the rectal vault.? I performed retroflexion.? This was also normal.? Using insufflation, I then advanced the colonoscope beyond the rectal folds and into the sigmoid colon before advancing towards the cecum.? There was moderate sigmoid diverticulosis. The quality of the prep was excellent.? The scope was noted to be in the cecum by identification of the ileocecal valve and appendiceal orifice. There was a 0.25 cm sessile polyp in the cecum. I performed cold forcep polypectomy. There was minimal bleeding. I then began withdrawing the colonoscope using repeated irrigation as necessary for full evaluation of the colonic mucosa. ?Around 70 cm from the anal verge I identified a 0.25 cm sessile. ?It appeared sessile in character. ?I was able to remove this with a cold forcep polypectomy. ?I exami lakshmi the site, and there was minimal bleeding. ?Once this was completed, I continued to withdraw the scope and examine the remainder of the colonic mucosa. Around 45 cm from the anal verge I identified a 0.5 cm polyp. ?It appeared sessile in character, but it was mildly mushroomed around the edge. ?I was able to remove this with a cold forcep polypectomy. ?I examined the site, and there was minimal bleeding. Similarly, I performed cold forcep polypectomy on a 0.5 cm sessile polyp at 25 cm from the anal verge. There was minimal bleeding here. Once the scope was withdrawn to the level of the rectum, great care was taken to examine portions of the rectal folds. Once this was completed, I continued to withdraw the scope and examine the remainder of the colonic mucosa. Finally, the scope was withdrawn and the patient was brought to the same-day surgery recovery unit as the anesthetic wore off. ?The findings and instructions were shared with the patient prior to discharge.
[2022-06-21 09:50] VITALS: BP 109/73; PULSE 95; RESP 16; TEMP 36.5; O2SAT 97
[2022-06-21] MEDS: Lactated Ringers 1,000 ML 80 ML IV (10:22)
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
[2022-06-21 10:29] VITALS: BMI 23.1
--- NOTE | 2022-06-21 10:55 | BOWEL_PTH ---
PATIENT: Deepali Ferraro LOC: [facility] U#:[id number] AGE/SX: 57/F ROOM: RE06/21/[address]: Roosevelt Carmona MD : 1965 BED: DIS: 06/21/2022 SPEC #: [id number] RECD: 06/21/22 12:51 STATUS: SPENCER RE #: [id number] AMADA: 06/21/22 10:[address]: Roosevelt Carmona DEPT: Surgical Specimen RECD BY: Елена Byrne ENTERED: 06/21/22 12:52 SP TYPE: Bowel OTHR DR: Rafat Dietz Tissues: 1 - BIOPSY BOWEL 2 - STOMACH BIOPSY 3 - STOMACH BIOPSY 4 - STOMACH BIOPSY 5 - ESOPHAGUS BIOPSY 6 - BIOPSY BOWEL 7 - BIOPSY BOWEL 8 - BIOPSY BOWEL 9 - BIOPSY BOWEL Procedures: GROSS AND MICRO LEVEL 4 Comments: [id number]
[2022-06-21 11:33] VITALS: BP 108/75; PULSE 83; RESP 16; TEMP 36.1; O2SAT 97
--- NOTE | 2022-06-21 11:35 | W.ANESPOSTOP ---
Postoperative Evaluation Date, Time and Location Date Performed: 06/21/22 Time Performed: 11:35 Patient Location: Day Surgery Unit Vital Signs Most Recent Imported Vital Signs: Most Recent Vital Signs Temp Pulse Resp BP Pulse Ox 36.5 C 95 H 16 109/73 97 06/21/22 09:50 06/21/22 09:50 06/21/22 09:50 06/21/22 09:50 06/21/22 09:50 Most Recent Manually Entered Vital Signs: Adult Blood Pressure: 108/75 Heart Rate: 83 Respirations: 16 Oxygen Saturation (%): 95 Temperature (C): 36.1 C Pain Score (0-10 Scale): 0 Pain Score Most Recent Pain Score: Most Recent Pain Score Pain Level 0 06/21/22 09:50 Assessment Mental Status: Awake (Alert & Oriented to Patient Baseline) Airway and Respiratory Function: Patent airway with normal (patient baseline) respiratory exam Cardiovascular Function: Hemodynamically Stable Hydration Status: Adequately Hydrated Nausea & Vomiting: No Nausea or Vomiting Pain: Pt. Denies Any Pain Peripheral Nerve Block: Patient did not receive a nerve block
[2022-06-21 11:37] VITALS: BP 108/75; PULSE 83; RESP 16; TEMPC 36.1; O2SAT 95
[2022-06-21 11:58] VITALS: BP 119/71; PULSE 74; RESP 16; TEMP 36.3; O2SAT 97
== END 2022-06-21 12:17 | disposition home or self-care (01) ==
PROVIDERS: PCP Family Medicine; Visit Provider Surgery
PROC: (CPT 45380; principal; 2022-06-21 11:00)
DX: Z12.11 Encounter for screening for malignant neoplasm of colon (principal); K21.9 Gastro-esophageal reflux disease without esophagitis; K29.70 Gastritis, unspecified, without bleeding; K63.5 Polyp of colon; K25.9 Gastric ulcer, unspecified as acute or chronic, without hemorrhage or perforation; K22.9 Disease of esophagus, unspecified; K31.89 Other diseases of stomach and duodenum
CPT/HCPCS: 45380; 43239; 88305

== ENCOUNTER 2022-07-10 16:59 | Emergency (ER) | payer MEDICAID, SELFPAY ==
[2022-07-10 17:01] VITALS: BP 137/87; PULSE 93; RESP 17; TEMP 36.4; O2SAT 99
--- NOTE | 2022-07-10 17:15 | DI.CT_ITS ---
Exam(s) CT ABDOMEN PELVIS W EXAM: CT ABDOMEN PELVIS W CLINICAL HISTORY: left lower abdominal pain. TECHNIQUE: Imaging Protocol: Axial computed tomography images with coronal and sagittal reformatted images were created and reviewed CONTRAST MATERIAL: Intravenous: Omnipaque 350 Contrast volume:100 ml Oral: yes / no COMPARISON: CT CT ABDOMEN PELVIS W from 04/01/2019 FINDINGS: ABDOMEN: Lung Bases: Normal where visualized. Liver: Normal density. Stable appearance of hemangioma left lobe of the liver Gallbladder and biliary tract: No radiodense calculus or dilation. Pancreas: Normal density, no abnormal calcifications or inflammatory process. Spleen: Normal. Kidneys: Normal size, contour and axis. No radiodense stones or obstructive uropathy. No masses seen. Adrenal glands: No masses seen. Abdominal Aorta: Abdominal portion non-dilated. Atherosclerotic changes. PELVIS: Bladder: Mild diffuse wall thickening. Anterior bladder diverticulum, unchanged.. No calculi.No foc al mass. Bowel: Diverticulosis descending and sigmoid colon. Wall thickening and inflammatory stranding in th e fat surrounding the junction at the the descending and sigmoid regions consistent with diverticulit is. No evidence of perforation or abscess. No obstruction or bowel wall thickening. Appendix normal . Peritoneal cavity: No ascites, collection or mesenteric inflammatory response. Bones: Within normal limits for age. Reproductive organs: Within normal limits. Lymph nodes: Unremarkable. Impression: Uncomplicated diverticulitis at the junction of descending and sigmoid colon. RADIATION DOSE DELIVERED: 712.88mGy.cm Total DLP DATA REPOSITORY: All CT scans at this facility are submitted to the National Radiology Data Registry (NRDR) Dose Index Registry (DIR) with the [employer] (ACR). RADIATION OPTIMIZATION: All CT scans at this facility use at least one of these dose optimization te chniques: automated exposure control; mA and/or kV adjustment per patient size (includes targeted exa ms where dose is matched to clinical indication); or iterative reconstruction.
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
[2022-07-10 17:35] LABS: Abs Immature Grans 0.03 10^3/uL (0.0-0.06); Absolute Basophil Count 0.04 10^3/uL (0.0-0.2); Absolute Eosinophil Count 0.08 10^3/uL (0.0-0.7); Absolute Lymphocyte Count 3.73 10^3/uL (1.2-3.4); Absolute Monocyte Count 0.82 10^3/uL (0.1-0.8); Basophils % 0.3; Eosinophils % 0.6; HCT 43.7 % (36.0-46.0); HGB 14.3 g/dL (11.2-15.7); Immature Grans % 0.2; MCH 29.7 pg (27.0-33.0); MCHC 32.7 % (32.0-36.0); MCV 91 fL (80-95); Monocytes % 6.4; Neutrophils % 63.5; Platelet Count 338 10^3/uL (130-400); RBC 4.81 10^6/uL (3.93-5.22); RDW 12.7 % (11.7-14.6); RDW-SD 42.5 fL; WBC 12.86 10^3/uL (4.4-10.8)
[2022-07-10 17:37] LABS: Absolute Neutrophil Count 8.17 10^3/uL (1.2-6.7)
[2022-07-10 17:50] LABS: ALT 18 U/L (14-59); AST 14 U/L (15-37); Albumin 3.5 g/dL (3.4-5.0); Alkaline Phosphatase 79 U/L (46-116); Anion Gap 6.9 mmol/L (3-11); BUN 11 mg/dL (7-18); Bilirubin, Total 0.4 mg/dL (0.2-1.0); CO2 25.1 mmol/L (21.0-32.0); CREATININE 0.8 mg/dL (0.55-1.02); Calcium 8.8 mg/dL (8.5-10.1); Chloride 106 mmol/L (98-107); Estimated GFR 86.42 (mL/min/1.73m2); Glucose 101 mg/dL (74-106); Lipase 113 U/L (73-393); Magnesium 1.7 mg/dL (1.8-2.4); Potassium 3.9 mmol/L (3.5-5.1); Sodium 138 mmol/L (136-145); Total Protein 6.9 g/dL (6.4-8.2)
[2022-07-10] MEDS: Normal Saline - Diluent 50 ML VIAL IJ (17:56)
[2022-07-10] MEDS: Omnipaque 350 MG/ML 100 ML BTL IJ (17:57)
[2022-07-10] MEDS: Normal Saline Flush 10 ML SYR IVP (17:58)
--- NOTE | 2022-07-10 18:35 | DI.VRAD_ITS ---
PROCEDURE INFORMATION: Exam: CT Abdomen And Pelvis With Contrast Exam date and time: 07/10/2022 5:58 PM Age: 57 years old Clinical indication: Other: Left lower abdomen pain TECHNIQUE: Imaging protocol: Computed tomography of the abdomen and pelvis with contrast. Contrast material: OMNIPAQUE 350; Contrast volume: 100 ml; Contrast route: INTRAVENOUS (IV); COMPARISON: CT ABDOMEN PELVIS W 04/01/2019 9:28 AM FINDINGS: Liver: Normal. No mass. Gallbladder and bile ducts: Gallbladder contracted. Pancreas: Normal. No ductal dilation. Spleen: Normal. No splenomegaly. Adrenal glands: Normal. No mass. Kidneys and ureters: Normal. No hydronephrosis. Stomach and bowel: There is focal wall thickening of the junction of the descending colon and sigmoid region. There is a posterior thick-walled diverticulum. There is moderate adjacent inflammatory change. No extraluminal air or drainable fluid attenuation collection is identified. Appendix: No evidence of appendicitis. Intraperitoneal space: Trace free fluid noted in the pelvis. Vasculature: Severe atherosclerotic change present in the vasculature. Lymph nodes: Unremarkable. No enlarged lymph nodes. Urinary bladder: Right anterior bladder diverticulum again seen. Reproductive: Unremarkable as visualized. Bones/joints: Mild lumbar spondylosis. Soft tissues: Unremarkable. IMPRESSION: Acute diverticulitis distal descending colon and proximal sigmoid region, uncomplicated. Dictated and Authenticated by: Dinah Sorenson MD. Ordering:JUDY Olivarez MD
[2022-07-10] MEDS: Ketorolac 15 MG/ML VIAL IVP (18:50)
[2022-07-10] MEDS: metroNIDAZOLE 500 MG TAB PO (18:55)
[2022-07-10] MEDS: Ciprofloxacin 500 MG TAB PO (18:55)
[2022-07-10 19:00] VITALS: BP 158/76; PULSE 83; TEMP 36.1; O2SAT 98
== END 2022-07-10 19:36 | disposition home or self-care (01) ==
PROVIDERS: Emergency Provider Emergency Medicine; PCP Family Medicine
DX: K57.92 Diverticulitis of intestine, part unspecified, without perforation or abscess without bleeding (principal)
CPT/HCPCS: 36415; 80053; 83690; 96361; 96374; 99285; 74177; 83735; 85025; 99284; J1885; J3490

== ENCOUNTER 2022-09-12 01:59 | Outpatient (CLI) | payer MEDICAID, SELFPAY ==
--- NOTE | 2022-09-12 09:15 | DI.CTLCSR_ITS ---
Exam(s) CT CHEST LUNG CANCER SCREEN EXAM: CT CHEST LUNG CANCER SCREEN CLINICAL HISTORY: CIGARETTE SMOKER, F17.210 TECHNIQUE: Imaging Protocol: Axial computed tomography images with coronal and sagittal reformatted images were created and reviewed COMPARISON: CT CT CHEST LUNG CANCER SCREEN from 09/10/2021 FINDINGS: Tracheobronchial tree: Patent where visualized. Pulmonary parenchyma: No consolidation or dominant measurable mass. No architectural distortion. Lung Nodules: There is a stable 3 mm nodule in the left lung apex. Mediastinum and Halley: No dominant adenopathy or fluid collection. The esophagus is unremarkable. Thyroid gland: Unremarkable. Lymph nodes: Unremarkable. Pleura: No effusion or pneumothorax. Heart: The heart is not dilated. Mild coronary artery calcification is present. No pericardial effus ion. Aorta: Thoracic aorta non-dilated.Atherosclerosis. Upper abdomen: There is colonic diverticulosis. Soft Tissues: Unremarkable. Bones: Within normal limits. IMPRESSION: Stable 3 mm left upper lobe pulmonary nodule. Lung RADS Cat 2 - Benign Appearance / Behavior: Nodules with a very low likelihood of becoming a clin ically active cancer due to size or lack of growth Lung-RADS 1.0 CATEGORIES: Category 0 - Prior chest CT exam(s) being located for comparison. Category 1 - Annual screening in 12 months. No nodules or definitely benign nodules. Category 2 - Annual screening in 12 months. Benign appearance. Nodules with low likelihood of becomin g active cancer. Category 3 - 6-month follow-up. Probably benign. Short-term follow-up suggested. Nodules with low lik elihood of becoming active cancer. Category 4A - 3-month follow-up and CT/PET if >8 mm in size. Suspicious finding. Findings which requi re additional testing. Category 4B - Findings which require additional testing and tissue sampling. Suspicious finding. Category 4X - Category 3 or 4 nodules with additional features or imaging findings that increases the suspicion of malignancy. Modifier S- Potentially clinically significant finding. (Non lung cancer) RADIATION DOSE DELIVERED: 68.23mGy.cm Total DLP 68.23mGy.cmTotal DLP DATA REPOSITORY: All CT scans at this facility are submitted to the National Radiology Data Registry (NRDR) Dose Index Registry (DIR) with the [employer] (ACR). RADIATION OPTIMIZATION: All CT scans at this facility use at least one of these dose optimization te chniques: automated exposure control; mA and/or kV adjustment per patient size (includes targeted exa ms where dose is matched to clinical indication); or iterative reconstruction.
== END 2022-09-12 02:19 ==
LOC: DI 02:00
PROVIDERS: PCP Family Medicine; Visit Provider Family Medicine
DX: Z12.2 Encounter for screening for malignant neoplasm of respiratory organs (principal); F17.210 Nicotine dependence, cigarettes, uncomplicated; R91.1 Solitary pulmonary nodule
CPT/HCPCS: 71271

== ENCOUNTER 2022-09-23 01:15 | Outpatient (CLI) | payer MEDICAID, SELFPAY ==
--- NOTE | 2022-09-23 | DI.US_ITS ---
Exam(s) MAMMO DIAGNOSTIC BI US BREAST LT LIMITED EXAM: MAMMO DIAGNOSTIC BI and U/S breast LT limited CLINICAL HISTORY: LT BREAST LUMP, N63.0, DIAGNOSTIC. TECHNIQUE: Craniocaudal and mediolateral oblique Full Field Digital Mammography views with Computer Aided Diagnosis followed by Tomosynthesis and left breast ultrasound. COMPARISON: Comparison is made with prior examinations. FINDINGS: Mammography/Tomosynthesis: Masses/Architectural Distortion: None seen. Microcalcifictions: No suspicious pleomorphic-type are seen. Skin Thickening/Nipple Retraction: None. Limited left breast US: Echotexture: Normal appearance of the glandular tissue. Shadowing: No suspicious foci. Cyst: None. Solid lesions: None seen. Ductal dilation: None. IMPRESSION: 1. No evidence of malignancy is noted. 2. Unless there is more urgent need, follow-up screening mammography is recommended, as per [place] [employer] guidelines. 3. The findings were discussed with the patient on the date of the examination. BI-RADS Category 1 - Negative Breast Density - Category B - Scattered areas of fibroglandular density Breast density Category C or D implies that the patient has dense breast tissue. Dense breast tissue can make it harder to find cancer on a mammogram. Dense breast tissue is also associated with an incr eased risk of breast cancer. This information about the result of the mammogram report was provided to the patient to raise their awareness. Use this report when you speak with the patient about their risks for breast cancer, which includes their family history. At that time, you may recommend additional screening tests (Ultrasoun d or MRI) as these tests may add significant information. A negative radiographic report should not delay biopsy if a dominant or clinically suspicious mass is present. Up to ten percent of cancers are not identified on mammography. A negative report may reinforce clinical impression. Adenosis and dense breasts may obscure an underlying neoplasm. False positive reports average 6 to 10%. Patient will receive a letter notifying them of these results.
== END 2022-09-23 01:35 ==
LOC: DI 01:16
PROVIDERS: PCP Family Medicine; Visit Provider Family Medicine
DX: N63.25 Unspecified lump in the left breast, overlapping quadrants (principal)
CPT/HCPCS: 76642; 77062; 77066; G0279

== ENCOUNTER 2022-10-03 02:03 | Outpatient (CLI) | payer MEDICAID, SELFPAY ==
--- NOTE | 2022-10-03 | DI.US_ITS ---
Exam(s) US PELVIS TRANSVAGINAL EXAM: US PELVIS TRANSVAGINALi CLINICAL HISTORY: DEEP DYSPAREUNIA,N94.12 TECHNIQUE: Ultrasound of the pelvis was performed both transabdominal and transvaginal. COMPARISON: No exams were available for comparison FINDINGS: UTERUS: Nongravid and anteverted Measures 6 cm length x 2.2 cm AP x 4.2 cm wide. There are no uterine fibroids. Endometrial thickness measures 2.7 mm. There is no fluid in the endometrial canal. CERVIX: There are no obvious nabothian cysts. RIGHT OVARY: Measures 1.7 x 1.2 x 2.9 cm No significant cysts nor masses evident in the right ovary. LEFT OVARY: Measures 1.5 x 1.3 x 2.8 cm No significant cysts nor masses evident in the left ovary. CUL-DE-SAC: No free fluid evident. IMPRESSION: 1. Normal appearing uterus and age-appropriate endometrium. 2. No abnormal ovarian findings. 3. No free fluid evident in the adnexal regions and cul-de-sac. DATA REPOSITORY:
== END 2022-10-03 02:23 ==
LOC: DI 02:03
PROVIDERS: PCP Family Medicine; Visit Provider Family Medicine
DX: N94.12 Deep dyspareunia (principal)
CPT/HCPCS: 76830; 76856

== ENCOUNTER 2022-11-23 14:57 | Outpatient (CLI) | payer MEDICAID, SELFPAY ==
--- NOTE | 2022-11-23 | DI.RAD_ITS ---
Exam(s) XR CHEST 2V PA LATERAL EXAM: XR CHEST 2V PA LATERAL CLINICAL HISTORY: BRONCHITIS, J40; ? UNDERLYING PNEUMONIA. TECHNIQUE: 2D digital imaging was performed. COMPARISON: No exams were available for comparison FINDINGS: 2 views: Heart size is normal. The mediastinum is not widened. Lungs are clear. No infiltrates nor pleural effusions. IMPRESSION: No acute pulmonary findings. DATA REPOSITORY: RADIATION DOSE DELIVERED:
== END 2022-11-23 15:17 ==
LOC: DI 14:58
PROVIDERS: PCP Family Medicine; Visit Provider Physician Assistant Medical
DX: J40 Bronchitis, not specified as acute or chronic (principal)
CPT/HCPCS: 71046

== ENCOUNTER 2023-01-05 03:06 | Outpatient (CLI) | payer MEDICAID, SELFPAY ==
[2023-01-05 14:01] LABS: Abs Immature Grans 0.02 10^3/uL (0.0-0.06); Absolute Basophil Count 0.06 10^3/uL (0.0-0.2); Absolute Eosinophil Count 0.18 10^3/uL (0.0-0.7); Absolute Lymphocyte Count 4.56 10^3/uL (1.2-3.4); Absolute Monocyte Count 0.77 10^3/uL (0.1-0.8); Basophils % 0.5; Eosinophils % 1.5; HCT 46.2 % (36.0-46.0); Immature Grans % 0.2; MCH 29.2 pg (27.0-33.0); MCHC 32.5 % (32.0-36.0); MCV 90 fL (80-95); MPV 9.8 fL (8.0-11.0); Monocytes % 6.6; Neutrophils % 52.2; Platelet Count 374 10^3/uL (130-400); RBC 5.13 10^6/uL (3.93-5.22); RDW 13.7 % (11.7-14.6); WBC 11.69 10^3/uL (4.4-10.8)
[2023-01-05 14:53] LABS: ALT 18 U/L (14-59); AST 16 U/L (15-37); Albumin 3.6 g/dL (3.4-5.0); Alkaline Phosphatase 108 U/L (46-116); BUN 7 mg/dL (7-18); Bilirubin, Total 0.6 mg/dL (0.2-1.0); CREATININE 0.8 mg/dL (0.55-1.02); Calcium 9.2 mg/dL (8.5-10.1); Calculated LDL 206 mg/dL (<100); Chloride 105 mmol/L (98-107); Cholesterol 292 mg/dL (<200); Estimated GFR 86.42 (mL/min/1.73m2); Glucose 104 mg/dL (74-106); HDL Cholesterol 53 mg/dL (40-60); Potassium 3.9 mmol/L (3.5-5.1); Sodium 143 mmol/L (136-145); Total Protein 7.5 g/dL (6.4-8.2); Triglyceride 169 mg/dL (<150)
== END 2023-01-05 03:07 | disposition home or self-care (01) ==
LOC: LBO 03:06
PROVIDERS: PCP Family Medicine; Visit Provider Family Medicine
DX: E78.5 Hyperlipidemia, unspecified (principal); G45.3 Amaurosis fugax; Z87.891 Personal history of nicotine dependence
CPT/HCPCS: 36415; 80053; 80061; 85025

== ENCOUNTER 2023-01-23 03:20 | Outpatient (CLI) | payer MEDICAID, SELFPAY ==
--- NOTE | 2023-01-23 | DI.US_ITS ---
Exam(s) US CAROTID EXAM: US CAROTID CLINICAL HISTORY: AMAUROSIS FUGAX RIGHT G45.3 HYPERLIPIDEMIA E78.5. TECHNIQUE: Ultrasound carotids performed using grayscale, color-flow, and spectral Doppler imaging. COMPARISON: No exams were available for comparison FINDINGS: RIGHT CAROTID ARTERY: Plaque: Minimal soft plaque is seen in the proximal right ICA. Velocity elevation: None. LEFT CAROTID ARTERY: Plaque: None. Velocity elevation: None. VERTEBRAL ARTERIES: Antegrade flow. Measurements: R Bulb: 54 PS/13 ED R CCA: 58 PS/18 ED R ECA: 70 PS/16 ED R ICA Prox: 55 PS/17 ED R ICA Mid: 59 PS/21 ED R ICA Distal: 56 PS/18 ED R Vert: 53 PS/17 ED L Bulb: 50 PS/12 ED L CCA: 72 PS/toward ED L ECA: 82 PS/18 ED L ICA Prox: 67 PS/13 ED L ICA Mid: 53 PS/17 ED L ICA Distal: 64 PS/19 ED L Vert: 26 PS/10 ED IMPRESSION: No evidence for hemodynamically significant carotid stenosis. Criteria for Carotid Stenosis: Normal: ICA PSV <125 cm/s no plaque or intimal thickening is visible. <50% stenosis: ICA PSV <125 cm/s and plaque or intimal thickening is visible. 50-69% stenosis: ICA PSV is 125-250 cm/s and plaque is visible. >70% stenosis to near occlusion: ICA PSV >250 cm/s with visible plaque and luminal narrowing. DATA REPOSITORY:
== END 2023-01-23 03:40 ==
LOC: DI 03:20
PROVIDERS: PCP Family Medicine; Visit Provider Family Medicine
DX: G45.3 Amaurosis fugax (principal); E78.5 Hyperlipidemia, unspecified
CPT/HCPCS: 93880

== ENCOUNTER 2023-06-25 02:18 | Emergency (ER) | payer MEDICAID, SELFPAY ==
[2023-06-25 02:24] VITALS: BP 136/69; PULSE 81; RESP 18; TEMP 36.2; O2SAT 99
--- NOTE | 2023-06-25 02:30 | DI.RAD_ITS ---
Exam(s) XR TIB/FIB LT EXAM: XR TIB/FIB LT CLINICAL HISTORY: fall, left mid fib pain. TECHNIQUE: 2D digital imaging was performed. COMPARISON: CR,XR XR FEMUR LT from 06/25/2023 FINDINGS: Two views. No evidence of fracture. Tibial plateau unremarkable. No widening of the ankle mortise. No soft ti ssue abnormalities. IMPRESSION: No acute osseous findings. DATA REPOSITORY: RADIATION DOSE DELIVERED:
--- NOTE | 2023-06-25 02:30 | DI.RAD_ITS ---
Exam(s) XR FEMUR LT EXAM: XR FEMUR LT CLINICAL HISTORY: fall, left hip pain. TECHNIQUE: 2D digital imaging was performed. COMPARISON: CR XR tib/fib RT from 06/06/2018 FINDINGS: Two views: There is no evidence of fracture of the left femur. No hip joint space narrowing. No fractures dist ally. No no radiopaque foreign bodies. IMPRESSION: No acute osseous findings in the femur. DATA REPOSITORY: RADIATION DOSE DELIVERED:
--- NOTE | 2023-06-25 02:30 | DI.RAD_ITS ---
Exam(s) XR PELVIS AP EXAM: XR PELVIS AP CLINICAL HISTORY: fall, left hip pain. TECHNIQUE: 2D digital imaging was performed. COMPARISON: No exams were available for comparison FINDINGS: Single AP view pelvis There is no evidence of pelvic nor hip fracture. Bone density normal. No osseous lesions. No degen erative changes. IMPRESSION: No fractures evident. DATA REPOSITORY: RADIATION DOSE DELIVERED:
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
[2023-06-25] MEDS: Ketorolac 30 MG/ML VIAL IM (02:39)
[2023-06-25] MEDS: Acetaminophen 500 MG TAB 1000 MG PO (02:39)
[2023-06-25] MEDS: Lidocaine 5% Patch 1 PATCH TP (02:40)
--- NOTE | 2023-06-25 03:20 | NUR.NOTE ---
Pt placed on care management referral list for PT for L hip pain to be sen within 1-[address] Dawkins
[2023-06-25 03:57] VITALS: BP 121/67; PULSE 75; RESP 17; TEMP 36.9; O2SAT 98
[2023-06-25] MEDS: predniSONE 20 MG TAB 60 MG PO (03:57)
--- NOTE | 2023-06-25 05:10 | DI.VRAD_ITS ---
PROCEDURE INFORMATION: Exam: XR Pelvis Exam date and time: 06/25/2023 2:53 AM Age: 58 years old Clinical indication: Patient HX: Fall, left hip pain TECHNIQUE: Imaging protocol: Radiologic exam of the pelvis. Views: 1 or 2 view. COMPARISON: CT ABDOMEN PELVIS W 07/10/2022 5:58 PM FINDINGS: Bones/joints: The pelvis is grossly intact on this single AP view. The hip joints appear unremarkable. Soft tissues: Unremarkable. IMPRESSION: The pelvis is grossly intact on this single AP view. Recommend additional views if concerned for fracture. Dictated and Authenticated by: Alok Chavez MD. Ordering:OSCAR Cornelius MD
--- NOTE | 2023-06-25 05:10 | DI.VRAD_ITS ---
PROCEDURE INFORMATION: Exam: XR Left Tibia and Fibula Exam date and time: 06/25/2023 2:59 AM Age: 58 years old Clinical indication: Lower leg; Patient HX: Fall, left mid fib pain TECHNIQUE: Imaging protocol: Radiologic exam of the left tibia and fibula. Views: 2 views. COMPARISON: No relevant prior studies available. FINDINGS: Bones/joints: The tibia is unremarkable. The fibula is unremarkable. No fracture identified. No abnormal osseous lesions. Soft tissues: Unremarkable. IMPRESSION: No evidence of fracture. Dictated and Authenticated by: Alok Chavez MD. Ordering:OSCAR Cornelius MD
--- NOTE | 2023-06-25 05:11 | DI.VRAD_ITS ---
PROCEDURE INFORMATION: Exam: XR Left Femur Exam date and time: 06/25/2023 2:54 AM Age: 58 years old Clinical indication: Thigh; Patient HX: Fall, left hip pain TECHNIQUE: Imaging protocol: Radiologic exam of the left femur. Views: 2 views. COMPARISON: CR XR PELVIS AP 06/25/2023 2:53 AM FINDINGS: Bones/joints: No femoral fracture identified. Soft tissues: Unremarkable. IMPRESSION: No femoral fracture identified. Dictated and Authenticated by: Alok Chavez MD. Ordering:OSCAR Cornelius MD
== END 2023-06-25 03:57 | disposition home or self-care (01) ==
PROVIDERS: Emergency Provider Student in an Organized Health Care Education/Training Program; PCP Family Medicine
DX: M70.72 Other bursitis of hip, left hip (principal); W19.XXXA Unspecified fall, initial encounter
CPT/HCPCS: 73552; 96372; 99284; 72170; 73590; J1885; J7512

== ENCOUNTER 2023-06-26 09:12 | Emergency (ER) | payer MEDICAID, SELFPAY ==
[2023-06-26 09:14] VITALS: BP 175/78; PULSE 78; RESP 18; TEMP 36.5; O2SAT 98
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
[2023-06-26] MEDS: Cyclobenzaprine 10 MG TAB, 3 TABS/BTL PO (10:49)
[2023-06-26] MEDS: Ibuprofen 600 MG TAB PO (10:49)
[2023-06-26 11:11] VITALS: BP 174/80; PULSE 80; RESP 18; O2SAT 98
== END 2023-06-26 11:12 | disposition home or self-care (01) ==
PROVIDERS: Emergency Provider Nurse Practitioner Family; PCP Family Medicine
DX: M25.552 Pain in left hip (principal); R11.10 Vomiting, unspecified; Z89.431 Acquired absence of right foot; F17.210 Nicotine dependence, cigarettes, uncomplicated
CPT/HCPCS: 99283

== ENCOUNTER → 2023-06-30 01:43 | Outpatient (CLI) | payer MEDICAID, SELFPAY ==
--- NOTE | 2023-06-30 | DI.CT_ITS ---
Exam(s) CT PELVIC WO EXAM: CT PELVIC WO CLINICAL HISTORY: PELVIC GIRDLE PAIN, R10.2, PELVIC/PERINEAL PAIN, TO ASSESS SKELETAL INJURY. TECHNIQUE: Imaging Protocol: Axial computed tomography images with coronal and sagittal reformatted images were created and reviewed CONTRAST MATERIAL: Intravenous: none Oral: None COMPARISON: No exams were available for comparison FINDING: PELVIS: OSSEOUS: No pelvic nor hip fractures evident. No significant hip no significant osseous lesions evide nt.Sacroiliac joints appear age-appropriate. ANTERIOR ABDOMINAL WALL/GI:No evidence of significant anterior abdominal wall nor inguinal hernia in the pelvis evident.No obvious bowel obstruction. No evidence of appendicitis.There is sigmoid divert iculosis without evidence of obvious acute diverticulitis.No free fluid in the pelvis. LYMPH NODES: There is no intrapelvic nor inguinal adenopathy. URINARY BLADDER: No calculi nor obvious masses evident. There is mild uniform thickening of the bladd er wall. May be related to cystitis. In addition, there is a E diverticulum off the anterior wall the bladder, right of center. This does not contain radiopaque calculi nor gas. REPRODUCTIVE: No abnormalities detected.. IMPRESSION: 1. No significant osseous findings in the pelvis. 2. Sigmoid diverticulosis without evidence of obvious acute diverticulitis. 3. No evidence of appendicitis. 4. Uniform bladder wall thickening. In addition, there is a diverticulum off the anterior aspect of t he urinary bladder noted. This does not contain a calculus. RADIATION DOSE DELIVERED: Total DLP DATA REPOSITORY: All CT scans at this facility are submitted to the National Radiology Data Registry (NRDR) Dose Index Registry (DIR) with the [employer] (ACR). RADIATION OPTIMIZATION: All CT scans at this facility use at least one of these dose optimization te chniques: automated exposure control; mA and/or kV adjustment per patient size (includes targeted exa ms where dose is matched to clinical indication); or iterative reconstruction.
== END ==
PROVIDERS: PCP Family Medicine; Visit Provider Family Medicine
DX: K57.30 Diverticulosis of large intestine without perforation or abscess without bleeding (principal); N32.89 Other specified disorders of bladder
CPT/HCPCS: 72192

== ENCOUNTER → 2023-08-24 00:39 | Outpatient (CLI) | payer MEDICAID, SELFPAY ==
--- NOTE | 2023-08-24 06:15 | DI.US_ITS ---
Exam(s) US ABDOMEN EXAM: US ABDOMEN CLINICAL HISTORY: ABD PAIN, ? GALLSTONES,R10.9 TECHNIQUE: Ultrasound abdomen performed using standard protocol. COMPARISON: US ABDOMEN ULTRASOUND (P) from 02/17/[address] ABDOMEN PELVIS W from 04/01/[address] ABDOMEN PELVIS W from 07/10/[address] CHEST LUNG CANCER SCREEN from 09/12/[address] PELVIC WO from 06/30/2023 FINDINGS: ABDOMINAL AORTA AND IVC: Visualized portions normal caliber. PANCREAS: Normal where visualized. LIVER: There is a 1.7 x 1.3 x 1.4 cm subtle area of decreased echogenicity in the left lobe of the li karan. This corresponds to a hemangioma seen in the left lobe on prior CT examinations. Hepatopedal fidel w in the Portal Vein. The liver measures 15.4 cm long. GALLBLADDER:No evidence of cholelithiasis. No evidence of wall thickening. No pericholecystic fluid i dentified. BILIARY SYSTEM: The common duct could not be visualized, but no biliary ductal dilatation is seen. ARRIAGA'S SIGN: Negative. KIDNEYS: Kidneys are symmetric in size. No evidence of renal calculi. No evidence of hydronephrosis. No renal mass or cyst identified. SPLEEN: Not enlarged. ASCITES: None seen. IMPRESSION: 1. Stable left hepatic lobe lesion previously shown on CT scans to represent a hemangioma. 2. No evidence of cholelithiasis. No biliary ductal dilatation. DATA REPOSITORY:
== END ==
PROVIDERS: PCP Family Medicine; Visit Provider Surgery
DX: K76.89 Other specified diseases of liver (principal)
CPT/HCPCS: 76700

== ENCOUNTER 2023-08-31 09:48 | Day surgery (SDC) | payer MEDICAID, SELFPAY ==
--- NOTE | 2023-08-30 21:13 | W.PM.DSUDISC ---
Date of service: 08/31/23 Time of Service: 12:45 Discharge Plan Disposition Patient Disposition: Home Condition: Good Discharge Details Reason For Visit: EGD Attending Provider: Roosevelt Carmona Primary Care Provider: Rafat Dietz Home Meds and New Rx's Prescriptions: New sucralfate 1 gram tablet 1 g PO BID Qty: 60 0RF Rx Instructions: Take 1 tablet by mouth in the morning, 1 tablet by mouth in the evening. Continued aspirin 81 mg tablet,delayed release (DR/EC) 81 mg PO DAILY gabapentin 400 MG capsule 800 mg PO BID lidocaine [Lidoderm] 5 % adhesive patch,medicated 1 patch topical DAILY Rx Instructions: leave on most painful area for up to 12 hrs bupropion HCl 300 mg tablet extended release 24 hr 300 mg PO QAM albuterol sulfate [Proventil HFA] 1 PUFF HFA aerosol inhaler 2 puff Inhalation .Q4-6H PRN cetirizine 10 mg tablet 10 mg PO DAILY PRN Patient Comments: TAKE 1 TABLET BY MOUTH ONCE DAILY pantoprazole 40 mg tablet,delayed release (DR/EC) 40 mg PO DAILY Patient Comments: TAKE 1 TABLET BY MOUTH DAILY duloxetine 30 mg capsule,delayed release(DR/EC) 30 mg PO DAILY Patient Comments: TAKE 1 CAPSULE BY MOUTH DAILY cyclobenzaprine 5 mg tablet 5 - 10 mg PO TID PRN (Reason: muscle spasm) Qty: 20 0RF Discharge Instructions Instructions: Hiatal Hernia (GEN) Additional Instructions: Deepali, we were able to complete your upper endoscopy today just as we planned. You have a grade 3 hiatal hernia. I did not appreciate this on the last endoscopy, but it is more obvious now. This occurs when the top part of the stomach slips above the opening in the muscular separation between the chest and the abdomen (which is called the hiatus). This can be treated with surgery, but given the appearance of the area, I am not certain that he would benefit from that procedure at this time. I did not see any signs of ulcers that were present on the last endoscopy. I do see some changes around the connection between your esophagus and your stomach that look fairly consistent compared to your last EGD. I did some biopsies here just to be safe. I also found a small abnormality in your duodenum. This is the first part of the small intestine into which the stomach empties. I am not entirely sure if it is a polyp, or a healing ulcer. I biopsied in an effort to clarify the diagnosis. If it is an ulcer, that could explain some of the symptoms that you have been feeling on your right side. I would like to start you back on the sucralfate medication that we prescribed in the past. I am curious to see if this impacts her symptoms at all. Similar to the experience before, wait to see what all the biopsy results are, and I will be in touch at that point when I have some more information. 1. If tolerated, consume a soft, low fiber diet for 1-2 days. [address] Do not drive, drink alcohol, operate machinery, make critical decisions, or do activities that require coordination or balance for 24 hours. 3. You may experience a sore throat for 24 to 48 hours. You may use throat lozenges or gargle with warm salt water to relieve the discomfort. 4. Because air was put into your stomach during the procedure, you may experience some belching. 5. Go directly to the emergency room if you notice any of the following: Develop chills (warm to touch), or if you have a thermometer and your temperature is above 101 Difficulty breathing or difficultly swallowing Persistent vomiting Severe abdominal pain, other than gas cramps Severe chest pain Black, tarry stools Any bleeding ? exceeding one tablespoon 6. Call your physician if the site where your intravenous was started becomes red, swollen, painful, and warm to touch. 7. Your physician has reviewed your pre-procedure medications. Please continue to take those medications as previously ordered. You will be given specific information/education regarding any changes to your medications before leaving. Activity:: Activity as Tolerated Diet:: As Tolerated Discharge Orders Discharge Orders: Discharge Order (Routine); Ordered 08/30/23 Ordered By: Roosevelt Carmona DS: Diagnosis Discharge Diagnosis (1) Gastritis: Status: Acute Asessment and Plan: Follow-up on biopsy results
--- NOTE | 2023-08-30 21:15 | W.PM.ENDDOP ---
Date of service: 08/31/23 Time of Service: 12:50 Endoscopy Report DATE OF PROCEDURE: 08/31/23 PRE-OP DIAGNOSIS: GERD POST-OP DIAGNOSIS: other (GERD, hiatal hernia, duodenal polyp) PROCEDURE: EGD SURGEON: Roosevelt Carmona ANESTHESIA TYPE: General:No Airway ESTIMATED BLOOD LOSS: 10 PATHOLOGY: other (Duodenal polyp, gastric antral and body biopsies, GE junction biopsies) INDICATIONS: Deepali is a 58-year-old woman who carries a diagnosis of gastritis and gastroesophageal reflux disease. She is managed with proton pump inhibition therapy, however, she has been experiencing breakthrough symptoms, including some new right-sided upper abdominal pain. PROCEDURE START TIME: 12:19 PROCEDURE END TIME: 12:26 FINDINGS: Grade 3 hiatal hernia, duodenal polyp, less than 1 cm irregularity of the Z-line PROCEDURE DESCRIPTION: After the initiation of anesthesia, and with the assistance of a bite block, I advanced a standard gastroscope through the mouth past the hypopharynx and toward the esophagus.? The Z-line measured approximately 35 cm from the incisors. There was less than 1 cm of irregularity here. Narrowband imaging was used to assist with analysis. 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 There was minimal bleeding. The camera was advanced down into the stomach and retroflexed. There is a grade 3 hiatal hernia. I saw no ulcers in the area where she had previous abnormalities. The stomach was insufflated until the gastric rugae were obliterated. I saw no signs of active gastritis. I advanced the camera down towards the incisura angularis, antrum and pylorus. All of these appeared normal. I was able to traverse the pylorus without any difficulty. Duodenum generally appeared normal and healthy. There was 1 area of abnormality there was approximately 0.25 cm wide. This was in the second portion of the duodenum. I suspect this may be a healing duodenal ulcer, but it also had some polypoid features to it. Cold forceps were used to biopsy the area. There was minimal bleeding here. I then brought the camera back into the stomach and examined at 1 last time. I saw no other abnormalities. I then emptied the stomach, and brought the camera out along the length of the esophagus which was examined 1 last time. No other abnormalities were appreciated.
[2023-08-31 11:05] VITALS: BP 115/71; PULSE 82; RESP 18; TEMP 36.4; O2SAT 98
[2023-08-31] MEDS: Lactated Ringers 1,000 ML 80 ML IV (11:24)
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
[2023-08-31 11:38] VITALS: BMI 25.2
--- NOTE | 2023-08-31 12:20 | STOM_PTH ---
PATIENT: Deepali Ferraro LOC: [facility] U#:[id number] AGE/SX: 58/F ROOM: RE08/31/[address]: Roosevelt Carmona MD : 1965 BED: DIS: 08/31/2023 SPEC #: [id number] RECD: 08/31/23 18:04 STATUS: [facility] #: [id number] AMADA: 08/31/23 12:[address]: Roosevelt Carmona DEPT: Surgical Specimen RECD BY: Елена Byrne ENTERED: 08/31/23 18:05 SP TYPE: STOMACH OTHR DR: Rafat Dietz Tissues: 1 - STOMACH BIOPSY 2 - STOMACH BIOPSY 3 - STOMACH BIOPSY 4 - ESOPHAGUS BIOPSY Procedures: GROSS AND MICRO LEVEL 4 Comments: [id number]
[2023-08-31 12:37] VITALS: BP 87/68; PULSE 90; RESP 14; TEMP 36; O2SAT 94
[2023-08-31 12:46] VITALS: BP 100/71; PULSE 87; RESP 14; O2SAT 94
[2023-08-31 12:52] VITALS: BP 104/68; PULSE 80
[2023-08-31 12:57] VITALS: BP 110/73; PULSE 79
[2023-08-31 13:14] VITALS: BP 125/56; PULSE 80; RESP 16; TEMP 36; O2SAT 96
--- NOTE | 2023-08-31 13:26 | W.ANESPOSTOP ---
Postoperative Evaluation Date, Time and Location Date Performed: 08/31/23 Time Performed: 13:26 Patient Location: Day Surgery Unit Vital Signs Most Recent Imported Vital Signs: Most Recent Vital Signs Temp Pulse Resp BP Pulse Ox 36 C L 80 16 125/56 L 96 08/31/23 13:14 08/31/23 13:14 08/31/23 13:14 08/31/23 13:14 08/31/23 13:14 Pain Score Most Recent Pain Score: Most Recent Pain Score Pain Level 0 08/31/23 13:14 Assessment Mental Status: Awake (Alert & Oriented to Patient Baseline) Airway and Respiratory Function: Patent airway with normal (patient baseline) respiratory exam Cardiovascular Function: Hemodynamically Stable Hydration Status: Adequately Hydrated Nausea & Vomiting: No Nausea or Vomiting Pain: Pt. Denies Any Pain Peripheral Nerve Block: Patient did not receive a nerve block
== END 2023-08-31 13:42 | disposition home or self-care (01) ==
LOC: SUR 09:48
PROVIDERS: PCP Family Medicine; Visit Provider Surgery
PROC: 0DJ68ZZ Inspection of Stomach, Via Natural or Artificial Opening Endoscopic (ICD-10-PCS; CPT 43235; principal; 2023-08-31 11:15)
DX: K29.70 Gastritis, unspecified, without bleeding (principal); K21.9 Gastro-esophageal reflux disease without esophagitis; K44.9 Diaphragmatic hernia without obstruction or gangrene; K31.7 Polyp of stomach and duodenum; K22.89 Other specified disease of esophagus; K31.89 Other diseases of stomach and duodenum
CPT/HCPCS: 43239; 88305; J2704

== ENCOUNTER 2023-09-11 17:29 | Outpatient (REF) | payer MEDICAID, SELFPAY ==
[2023-09-11 17:42] LABS: ALT 25 U/L (14-59); AST 12 U/L (15-37); LDL CHOLESTEROL 89 mg/dL (<100)
== END 2023-09-11 17:30 | disposition home or self-care (01) ==
LOC: NCHCN 17:29
PROVIDERS: PCP Family Medicine; Visit Provider Family Medicine
DX: E78.5 Hyperlipidemia, unspecified (principal)
CPT/HCPCS: 83721; 84450; 84460

== ENCOUNTER 2023-10-23 15:09 | Outpatient (REF) | payer MEDICAID, SELFPAY | END 2023-10-23 15:10 | disposition home or self-care (01) | LOC: LBN 15:09 | PROVIDERS: PCP Family Medicine; Visit Provider Family Medicine | DX: N39.0 Urinary tract infection, site not specified (principal); B96.89 Other specified bacterial agents as the cause of diseases classified elsewhere; B96.20 Unspecified Escherichia coli [E. coli] as the cause of diseases classified elsewhere | CPT/HCPCS: 87077; 87086; 87186 ==

== ENCOUNTER 2023-11-29 15:13 | Outpatient (REF) | payer MEDICAID, SELFPAY ==
[2023-11-29 15:21] LABS: Bilirubin Negative (Negative); Blood Trace-intact (Negative); Clarity Cloudy (Clear); Glucose Negative (Negative); Ketones Negative (Negative); Leukocyte Esterase Small (Negative); Nitrite Negative (Negative)
[2023-11-29 16:16] LABS: Epithelial Cells Rare HPF (Negative); RBC 0-2 HPF (0-2); WBC 20-50 HPF (0-5)
[2023-11-29 16:17] LABS: Bacteria Many HPF (Negative); C & S Indicated? Yes; Casts Negative LPF (Negative); Crystals Negative HPF (Negative); Mucus Negative (Negative)
== END 2023-11-29 15:14 | disposition home or self-care (01) ==
LOC: NCHCN 15:13
PROVIDERS: Visit Provider Family Medicine
DX: N39.0 Urinary tract infection, site not specified (principal)
CPT/HCPCS: 87077; 81003; 81015; 87086; 87186

== ENCOUNTER 2023-12-12 09:47 | Emergency (ER) | payer MEDICAID, SELFPAY ==
[2023-12-12 09:49] VITALS: BP 186/88; PULSE 85; RESP 18; TEMP 36.1; O2SAT 99
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
[2023-12-12] MEDS: diazePAM 10 MG/2 ML SYR 2.5 MG IM (10:53)
[2023-12-12] MEDS: Ketorolac 15 MG/ML VIAL IM (10:53)
--- NOTE | 2023-12-12 11:19 | DI.RAD_ITS ---
Exam(s) XR LUMBAR SPINE COMPLETE EXAM: XR LUMBAR SPINE COMPLETE CLINICAL HISTORY: Lumbar Radiculopathy. TECHNIQUE: 2D digital imaging was performed of the lumbar spine. Five images were obtained. AP, la teral, right oblique, left oblique and L5-S1 spot views were obtained. COMPARISON: CR,XR XR LUMBAR SPINE AP, LAT from 02/06/2020 FINDINGS: BONES: No fracture or destructive lesion. Endplate osteophytes are seen at multiple levels of the lum bar spine but most marked at L2-3 through L4-L5. Degenerative changes of the facets are seen at L4-5 and L5-S1. DISKS: Mild disc space narrowing is seen at T12-L1. ALIGNMENT: Lumbar spinal alignment is within normal limits. No spondylolysis or spondylolisthesis. SOFT TISSUE: Vascular calcifications are present. IMPRESSION: Multilevel degenerative changes in the lumbar spine. No acute fracture or subluxation. DATA REPOSITORY: RADIATION DOSE DELIVERED:
[2023-12-12 12:13] VITALS: PULSE 80; RESP 16; O2SAT 97
[2023-12-12] MEDS: Cyclobenzaprine 10 MG TAB, 3 TABS/BTL PO (12:14)
== END 2023-12-12 12:15 | disposition home or self-care (01) ==
PROVIDERS: Emergency Provider Registered Nurse Emergency
DX: M54.42 Lumbago with sciatica, left side (principal); M51.36 Other intervertebral disc degeneration, lumbar region; F17.210 Nicotine dependence, cigarettes, uncomplicated; Z79.82 Long term (current) use of aspirin; Z89.431 Acquired absence of right foot
CPT/HCPCS: 96372; 99284; 72110; 99283; J1885; J3360

== ENCOUNTER → 2024-01-03 01:43 | Outpatient (CLI) | payer MEDICAID, SELFPAY ==
--- NOTE | 2024-01-03 10:30 | DI.MRI_ITS ---
Exam(s) MR LUMBAR SPINE WO EXAM: MR LUMBAR SPINE WO CLINICAL HISTORY: SCIATICA, L SIDE, M54.32. TECHNIQUE: Multiplanar multisequence MRI of the Lumbar spine was performed. COMPARISON: CT CT ABDOMEN PELVIS W from 07/10/2022 CR XR LUMBAR SPINE COMPLETE from 12/12/2023 FINDINGS: Plain films of 12/12/2023 reviewed. Conus medullaris is at normal level. There is no evidence of conus mass nor subjacent clumping of in trathecal nerve roots to suggest arachnoiditis. The distal thecal sac appears unremarkable.There is no evidence of Tarlov intrasacral cysts nor other significant findings within the sacral canal Bones:There are no fractures nor ominous osseous lesions in the lumbar vertebral bodies and visualize d sacrum. With respect to the individual levels... T12-L1: There is mild disc space narrowing at this level. There is a focal central posterior subliga mentous disc protrusion which extends posteriorly 3 mm and is 6 mm wide. This indents the anterior a spect of the thecal sac but not the spinal cord. No central spinal canal stenosis at this level. No foraminal stenosis. Facet joints unremarkable. L1-2: Normal disc height and signal. No disc herniation nor central canal stenosis.No foraminal steno sis L2-3: Mild disc height loss. Mild right-sided annular bulging. No dominant disc herniation nor cent ral canal stenosis.No foraminal stenosis.No facet arthropathy. L3-4: This level exhibits mild disc space narrowing, more so on the right side and there are lateral right-sided osteophytes noted. Posteriorly there is asymmetric annular bulging into the floor of the exiting right neural foramen. Central canal dimensions are lower normal. No foraminal stenosis on the left side. There is mild foraminal stenosis on the right side related to the annular bulging and posterior osteophytic ridging and increased disc height loss on the right side of the disc space. F acet joints appear unremarkable. L4-5: Mild disc height loss. At this level there is a significant posterolateral left disc herniatio n which occupies the left lateral recess and which extends caudally for a distance of 1.5 cm behind t he left side of the [id number] body. This compresses the anterior and left side of the thecal sac. It does not appear to extend into the exiting left neural foramen. There is no foraminal stenosis o n either side. Only minimal degenerative changes in the facet joints. L5-S1: Mild disc space narrowing, slightly more so on the left side. There is annular bulging, sligh tly more so on the left side and there is moderate left-sided foraminal stenosis which is mostly rela savana to the fact that there is more significant height loss of the disc on the left side than the righ t side resulting in vertical foraminal stenosis. There is some facet arthropathy-mild on the left si de. No foraminal stenosis on the opposite-right side. Central canal dimensions are lower normal. Soft tissues: paraspinal soft tissues appear unremarkable. IMPRESSION: 1. The main finding here is at L4-5 level where there is a prominent disc herniation posterolateral l eft occupying the left lateral recess and extending caudally for distance of 1.5 cm behind the left s brenden of the L5 vertebral body. The disc herniation does not extend into the exiting left neural harley en and there is no true foraminal stenosis on either side at this level. 2. Other findings as above with some asymmetric foraminal stenosis at L3-4 and L5-S1 levels. DATA REPOSITORY:
== END ==
PROVIDERS: Visit Provider Family Medicine
DX: M54.32 Sciatica, left side (principal)
CPT/HCPCS: 72148

== ENCOUNTER 2024-04-09 14:44 | Outpatient (REF) | payer MEDICAID, SELFPAY ==
[2024-04-09 14:46] LABS: Abs Immature Grans 0.01 10^3/uL (0.0-0.06); Absolute Basophil Count 0.05 10^3/uL (0.0-0.2); Absolute Eosinophil Count 0.17 10^3/uL (0.0-0.7); Absolute Lymphocyte Count 3.76 10^3/uL (1.2-3.4); Absolute Neutrophil Count 3.85 10^3/uL (1.2-6.7); Basophils % 0.6 %; HCT 47.1 % (36.0-46.0); HGB 15.1 g/dL (11.2-15.7); Immature Grans % 0.1 %; Lymphocytes % 44.5 %; MCH 30.4 pg (27.0-33.0); MCHC 32.1 % (32.0-36.0); MCV 95 fL (80-95); MPV 11.4 fL (8.0-11.0); Monocytes % 7.1 %; Neutrophils % 45.7 %; Platelet Count 352 10^3/uL (130-400); RBC 4.96 10^6/uL (3.93-5.22); RDW 13.5 % (11.7-14.6); RDW-SD 47.7 fL; WBC 8.44 10^3/uL (4.4-10.8)
[2024-04-09 15:14] LABS: ALT 20 U/L (14-59); AST 14 U/L (15-37); Albumin 3.8 g/dL (3.4-5.0); Alkaline Phosphatase 112 U/L (46-116); Anion Gap 7.8 mmol/L (3-11); BUN 9 mg/dL (7-18); Bilirubin, Total 0.27 mg/dL (0.2-1.0); CO2 29.2 mmol/L (21.0-32.0); CREATININE 0.7 mg/dL (0.55-1.02); Calcium 9.5 mg/dL (8.5-10.1); Chloride 107 mmol/L (98-107); Estimated GFR 100.81 (mL/min/1.73m2); Glucose 96 mg/dL (74-106); Potassium 4.7 mmol/L (3.5-5.1); Sodium 144 mmol/L (136-145); Total Protein 6.9 g/dL (6.4-8.2)
[2024-04-10 10:59] LABS: Lyme Ab w Rflx to Lyme Confirm Negative (Negative)
== END 2024-04-09 14:45 | disposition home or self-care (01) ==
LOC: LBN 14:44
PROVIDERS: PCP Family Medicine; Visit Provider Nurse Practitioner Family
DX: W57.XXXA Bitten or stung by nonvenomous insect and other nonvenomous arthropods, initial encounter (principal); S80.862A Insect bite (nonvenomous), left lower leg, initial encounter
CPT/HCPCS: 80053; 85025; 86618

== ENCOUNTER 2024-09-09 17:00 | Outpatient (REF) | payer MEDICAID, SELFPAY ==
[2024-09-09 21:56] LABS: Calculated LDL 104 mg/dL (<100); Cholesterol 203 mg/dL (<200); HDL Cholesterol 82 mg/dL (>or=50); Triglyceride 86 mg/dL (<150)
== END 2024-09-09 17:01 | disposition home or self-care (01) ==
LOC: NCHCN 17:00
PROVIDERS: PCP Family Medicine; Visit Provider Family Medicine
DX: Z00.00 Encounter for general adult medical examination without abnormal findings (principal)
CPT/HCPCS: 80061

== ENCOUNTER 2024-10-02 02:13 | Outpatient (CLI) | payer MEDICAID, SELFPAY ==
--- NOTE | 2024-10-02 | DI.MAMMO_ITS ---
Exam(s) MAMMO SCREENING EXAM: MAMMO SCREENING CLINICAL HISTORY: Screening, Z12.31 TECHNIQUE: Bilateral full field digital CC and MLO mammographic images were obtained with 3D tomosyn thesis and utilizing computer aided detection (CAD). COMPARISON: Available for comparison. FINDINGS: Masses/Architectural Distortion: None seen. Microcalcifications: No suspicious pleomorphic-type are seen. Skin Thickening/Nipple Retraction: None. IMPRESSION: 1. No significant interval change with no specific features of malignancy noted. 2. Unless there is more urgent need, screening mammography is recommended, as per [employer] guidelines. BI-RADS Category 1 - Negative Breast Density - Category B - Scattered areas of fibroglandular density Breast density category C or D implies that the patient has dense breast tissue. Dense breast tissue is very common and is not abnormal but dense breast tissue can make it harder to find cancer on a ma mmogram. Also, dense breast tissue may increase their breast cancer risk. This information about the result of the mammogram report was provided to the patient to raise their awareness. Use this report when you speak with the patient about their risks for breast cancer, which includes their family hist ory. At that time, you may recommend for more screening tests (Ultrasound or MRI) as they might be us eful based on their risk. A negative radiographic report should not delay biopsy if a dominant or clinically suspicious mass is present. Up to ten percent of cancers are not identified on mammography. A negative report may reinforce clinical impression. Adenosis and dense breasts may obscure an underlying neoplasm. False positive reports average 6 to 10%. Patient will receive a letter notifying them of these results.
--- NOTE | 2024-10-02 | DI.CTLCSR_ITS ---
Exam(s) CT CHEST LUNG CANCER SCREEN EXAM: CT CHEST LUNG CANCER SCREEN CLINICAL HISTORY: Nicotine dependence, cigarettes, F17.210 TECHNIQUE: Imaging Protocol: Axial computed tomography images with coronal and sagittal reformatted images were created and reviewed. Lung Computer Aided Detection (CAD) was utilized. COMPARISON: CT CT CHEST LUNG CANCER SCREEN from 09/12/2022 FINDINGS: Tracheobronchial tree: Patent where visualized. No bronchiectasis. Pulmonary parenchyma: No consolidation or dominant measurable mass. No architectural distortion. Lung Nodules: There is a stable 3 mm left upper lobe pulmonary nodule (series 2, image 24). No new p ulmonary nodules are present. Mediastinum and Halley: No dominant adenopathy or fluid collection. The esophagus is unremarkable. Thyroid gland: Unremarkable. Lymph nodes: Unremarkable. Pleura: No effusion or pneumothorax. Heart: The heart is not dilated. No coronary artery calcifications are seen. No pericardial effusion . Aorta: Thoracic aorta non-dilated.Mild atherosclerotic calcification is present. Upper abdomen: Unremarkable. Soft Tissues: Unremarkable. Bones: Within normal limits. IMPRESSION: Stable left upper lobe pulmonary nodule. No new pulmonary nodules. Lung RADS Cat 2 - Benign Appearance / Behavior: Nodules with a very low likelihood of becoming a clin ically active cancer due to size or lack of growth Lung-RADS 1.0 CATEGORIES: Category 0 - Prior chest CT exam(s) being located for comparison. Category 1 - Annual screening in 12 months. No nodules or definitely benign nodules. Category 2 - Annual screening in 12 months. Benign appearance. Nodules with low likelihood of becomin g active cancer. Category 3 - 6-month follow-up. Probably benign. Short-term follow-up suggested. Nodules with low lik elihood of becoming active cancer. Category 4A - 3-month follow-up and CT/PET if >8 mm in size. Suspicious finding. Findings which requi re additional testing. Category 4B - Findings which require additional testing and tissue sampling. Suspicious finding. Category 4X - Category 3 or 4 nodules with additional features or imaging findings that increases the suspicion of malignancy. Modifier S- Potentially clinically significant finding. (Non lung cancer) RADIATION DOSE DELIVERED: 24.93mGy.cm Total DLP 24.93mGy.cmTotal DLP DATA REPOSITORY: All CT scans at this facility are submitted to the National Radiology Data Registry (NRDR) Dose Index Registry (DIR) with the [employer] (ACR). RADIATION OPTIMIZATION: All CT scans at this facility use at least one of these dose optimization te chniques: automated exposure control; mA and/or kV adjustment per patient size (includes targeted exa ms where dose is matched to clinical indication); or iterative reconstruction.
== END 2024-10-02 02:33 ==
LOC: DI 02:13
PROVIDERS: PCP Family Medicine; Visit Provider Family Medicine
DX: Z12.31 Encounter for screening mammogram for malignant neoplasm of breast (principal); Z12.2 Encounter for screening for malignant neoplasm of respiratory organs; F17.210 Nicotine dependence, cigarettes, uncomplicated; R91.1 Solitary pulmonary nodule
CPT/HCPCS: 71271; 77063; 77067

== ENCOUNTER 2025-02-27 08:47 | Emergency (ER) | payer MEDICAID, SELFPAY ==
[2025-02-27 08:51] VITALS: BP 167/75; PULSE 89; RESP 18; TEMP 36.6; O2SAT 97
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
[2025-02-27 09:18] LABS: Abs Immature Grans 0.02 10^3/uL (0.0-0.06); HCT 45.8 % (36.0-46.0); HGB 15.0 g/dL (11.2-15.7); Immature Grans % 0.2 %; MCH 29.9 pg (27.0-33.0); MCHC 32.8 % (32.0-36.0); MCV 91 fL (80-95); MPV 10.8 fL (8.0-11.0); Platelet Count 307 10^3/uL (130-400); RBC 5.02 10^6/uL (3.93-5.22); RDW 13.4 % (11.7-14.6); RDW-SD 45.4 fL; WBC 10.01 10^3/uL (4.4-10.8)
[2025-02-27] MEDS: Normal Saline 500 ML IV (09:22)
[2025-02-27] MEDS: Ondansetron 4 MG/2 ML VIAL IVP (09:23)
[2025-02-27 09:28] LABS: ALT 28 U/L (14-59); AST 14 U/L (15-37); Albumin 3.4 g/dL (3.4-5.0); Alkaline Phosphatase 102 U/L (46-116); Anion Gap 8.0 mmol/L (3-11); BUN 3 mg/dL (7-18); Bilirubin, Total 0.5 mg/dL (0.2-1.0); CO2 27.0 mmol/L (21.0-32.0); Calcium 9.0 mg/dL (8.5-10.1); Chloride 103 mmol/L (98-107); Estimated GFR 74.10 (mL/min/1.73m2); Glucose 205 mg/dL (74-106); Magnesium 1.7 mg/dL (1.8-2.4); Potassium 3.6 mmol/L (3.5-5.1); Sodium 138 mmol/L (136-145); Total Protein 6.8 g/dL (6.4-8.2)
[2025-02-27 09:35] LABS: Lipase 51 U/L (<78)
[2025-02-27 09:46] LABS: Glucose 100 mg/dL (Negative)
[2025-02-27] MEDS: Normal Saline - Diluent 50 ML VIAL IJ (10:05)
[2025-02-27] MEDS: Normal Saline Flush 10 ML SYR IVP (10:05)
[2025-02-27] MEDS: Omnipaque 350 MG/ML 500 ML BTL-Imaging package IJ (10:06)
--- NOTE | 2025-02-27 10:14 | DI.CT_ITS ---
Exam(s) CT ABDOMEN PELVIS W EXAM: CT ABDOMEN PELVIS W CLINICAL HISTORY: LLQ abd pain, Nausea, Hx of Diverticulitis TECHNIQUE: Imaging Protocol: Axial computed tomography images with coronal and sagittal reformatted images were created and reviewed. CONTRAST MATERIAL: Intravenous: Omnipaque 350 Contrast volume:75 mL Oral: No COMPARISON: CT CT ABDOMEN PELVIS W from 04/01/[address] ABDOMEN PELVIS W from 07/10/2022 FINDINGS: ABDOMEN: Lung Bases: There is atelectasis in the lung bases. Liver: Normal density. No measurable mass. Portal, Superior Mesenteric, and Splenic Veins: Unremarkable. Gallbladder and Biliary Tract: No radiodense calculus or dilation. Pancreas: Normal density, no abnormal calcifications or inflammatory process. Spleen: Normal. Adrenals: No masses seen. Kidneys: Normal size, contour and axis. No radiodense stones or obstructive uropathy. No masses seen. Abdominal Aorta: Abdominal portion non-dilated. Atherosclerotic calcification is present. Bowel: There is diverticulosis of the colon. There is bowel wall thickening and pericolonic inflammation in the proximal sigmoid colon in the left lower quadrant consistent with diverticulitis. There is no abscess or free air. Appendix is unremarkable. There is no evidence of bowel obstruction. Peritoneal Cavity: No ascites, collection or mesenteric inflammatory response. No free air. Lymph Nodes: Within normal limits. Bones: Within normal limits for the patient's age. Soft Tissues: Unremarkable. PELVIS: Bladder: Symmetric distention, no gross wall thickening. There is a moderate- sized diverticulum arising from the superior aspect of the urinary bladder. Reproductive Organs: Unremarkable as visualized. Lymph Nodes: Within normal limits. Bones: Within normal limits for the patient's age. IMPRESSION: Acute diverticulitis involving the proximal sigmoid colon. There is no abscess or free air. RADIATION DOSE DELIVERED: 333.25mGy.cm Total DLP DATA REPOSITORY: All CT scans at this facility are submitted to the National Radiology Data Registry (NRDR) Dose Index Registry (DIR) with the [employer] (ACR). RADIATION OPTIMIZATION: All CT scans at this facility use at least one of these dose optimization techniques: automated exposure control; mA and/or kV adjustment per patient size (includes targeted exams where dose is matched to clinical indication); or iterative reconstruction.
[2025-02-27] MEDS: metroNIDAZOLE 500 MG TAB (11:27)
[2025-02-27] MEDS: Ciprofloxacin 500 MG TAB PO (11:27)
[2025-02-27] MEDS: Acetaminophen 325 MG TAB 650 MG PO (11:36)
[2025-02-27 11:48] VITALS: BP 151/82; PULSE 77; RESP 16; TEMP 36.6; O2SAT 98
== END 2025-02-27 11:50 | disposition home or self-care (01) ==
PROVIDERS: Emergency Provider Registered Nurse Emergency; PCP Family Medicine
DX: K57.92 Diverticulitis of intestine, part unspecified, without perforation or abscess without bleeding (principal)
CPT/HCPCS: 80053; 83690; 96361; 96374; 99285; 74177; 81003; 83735; 85025; 99284; J2405

== ENCOUNTER 2025-05-01 03:34 | Outpatient (CLI) | payer MEDICAID, SELFPAY ==
[2025-05-01 10:29] LABS: Abs Immature Grans 0.02 10^3/uL (0.0-0.06); HCT 45.8 % (36.0-46.0); HGB 14.9 g/dL (11.2-15.7); MCH 30.0 pg (27.0-33.0); MCHC 32.5 % (32.0-36.0); MCV 92 fL (80-95); MPV 10.8 fL (8.0-11.0); Platelet Count 322 10^3/uL (130-400); RBC 4.97 10^6/uL (3.93-5.22); RDW 14.2 % (11.7-14.6); RDW-SD 48.2 fL; WBC 8.64 10^3/uL (4.4-10.8)
[2025-05-01 10:47] LABS: Immature Grans % 0.0 %
[2025-05-01 10:48] LABS: RBC Morphology Normal
[2025-05-01 10:56] LABS: ALT 24 U/L (14-59); AST 13 U/L (15-37); Albumin 3.5 g/dL (3.4-5.0); Alkaline Phosphatase 89 U/L (46-116); Anion Gap 7.3 mmol/L (3-11); BUN 8 mg/dL (7-18); Bilirubin, Total 0.4 mg/dL (0.2-1.0); CO2 28.7 mmol/L (21.0-32.0); Calcium 9.5 mg/dL (8.5-10.1); Chloride 103 mmol/L (98-107); Glucose 115 mg/dL (74-106); Potassium 4.2 mmol/L (3.5-5.1); Sodium 139 mmol/L (136-145); Total Protein 7.0 g/dL (6.4-8.2)
== END 2025-05-01 03:35 | disposition home or self-care (01) ==
LOC: LBO 03:34
PROVIDERS: PCP Family Medicine; Visit Provider Family Medicine
DX: R07.9 Chest pain, unspecified (principal)
CPT/HCPCS: 36415; 80053; 85025

== ENCOUNTER → 2025-05-12 02:24 | Outpatient (CLI) | payer MEDICAID, SELFPAY ==
--- NOTE | 2025-05-12 | DI.NM_ITS ---
APPROVED REPORT Exam: Exercise Treadmill Patient Location: Out-Patient Room/Bed: Stress Nurse: Gaby Lopez RN Ordering Provider:ELLE LÓPEZ, Contact Number: [phone] BMI: 26.61 Baseline Rhythm: Sinus Rhythm Indications: Chest pain Medical History Medical History: Breast lump, prediabetes, amputated foot, depression, GERD, HLD, smoker, RLS, phantom limb syndrome, sciatica, chronic bronchitis Cardiac Medications: Aspirin, atorvastatin, bupropion, cetirizine, duloxetine, gabapentin, pantoprazole, ventolin Allergies: Penicillins, venlafaxine, sertraline, simvastatin Cardiac Risk Factors: HLD, family hx, smoker Previous Cardiac Procedures: None Pretest Chest Pain Characteristics: None Exercise History: Sedentary Physical Disabilities: L foot amputee Lung Sounds: Clear to auscultation Heart Sounds: Regular Stress Test Details Test: Pharmacologic stress was paired with low level exercise. Reason for pharmacologic stress test: physical limitation. Nuclear Acquisition: Rest Tc-99m/Stress Tc-99m 1 day Rest Isotope: Tc-99m Sestamibi. Dose: 10.0 Date: 05/12/2025 Injection Time: 1100 Stress Isotope: Tc-99m Sestamibi. Dose: 30.0 Date: 05/12/2025 Injection Time: 1322 HR Resting HR Supine: 67 bpm Max Heart Rate (APMHR): 162 bpm Resting HR Standin bpm Target HR (85% APMHR): 138 bpm Max HR Achieved: 114 bpm % of APMHR: 70 Recovery HR: 86 bpm BP Resting BP Supine: 158/88 mmHg Resting BP Standin/78 mmHg Max BP: 158/88 mmHg Recovery BP: 148/64 mmHg ECG Resting ECG: Sinus Rhythm Ectopy: None Stress ECG: Sinus Tachycardia ST Change: Nondiagnostic low heart rate Arrhythmia: None Recovery ECG: Sinus Rhythm Recovery ST Change: Nondiagnostic low heart rate Recovery Arrhythmia: None Clinical Stress Symptoms: None Angina Score: None Rate Pressure Product: [id number] Stress ECG Conclusion 1. Resting electrocardiogram was normal 2. Patient underwent testing using a combination of low-level exercise and pharmacologic stress with regadenoson 3. Peak heart rate achieved was 70% of maximal predicted for age 4. The electrocardiographic portion of the test was nondiagnostic 5. See MPI report Stress Test Summary STAGE HR BP SpO2 Symptoms NOTES Supine 67 158/88 93% Standing 70 144/78 1 min post Lexiscan injection 88 150/72 96% 3 min post Lexiscan injection 98 140/60 96% 6 min post Lexiscan injection 86 148/64 98% Walking chris test performed r/t patient hx of amputated foot. Patient denied symptoms and proceeded to imaging ambulatory in no apparent distress. MPI Conclusion Myocardial perfusion is normal. There is no ischemia or evidence of prior infarction Normal left ventricular function, normal wall motion
[2025-05-12] MEDS: Regadenoson 0.4 MG/5 ML SYR IVP (13:31)
== END ==
LOC: DI 02:24
PROVIDERS: PCP Family Medicine; Visit Provider Family Medicine
DX: R07.9 Chest pain, unspecified (principal)
CPT/HCPCS: 78452; 93017; J2785

== ENCOUNTER 2025-05-22 08:57 | Outpatient (CLI) | payer MEDICAID, SELFPAY | END 2025-05-22 08:58 | disposition home or self-care (01) | PROVIDERS: PCP Family Medicine; Visit Provider Family Medicine | DX: R07.9 Chest pain, unspecified (principal) | CPT/HCPCS: 93246 ==

== ENCOUNTER 2025-06-12 08:28 | Outpatient (CLI) | payer MEDICAID, SELFPAY ==
--- NOTE | 2025-06-12 09:09 | W.CARDEVENT ---
Date of service: 06/12/25 Time of Service: 09:09 Cardiac Event Recorder Referring Provider:: Rafat Dietz Indications:: Chest pain Cardiac Event Note: This is a cardiac event monitor. Patient was monitored for 11 days and 17 hours Rhythm throughout was sinus with an average heart rate of 76. Minimum was 54, maximum 123 There was very rare isolated ventricular ectopic beats There were very rare atrial premature beats. There were several supraventricular triplets There was no atrial fibrillation, no high-grade AV block, no pauses greater than 3 seconds. Reported symptoms correlated to sinus rhythm rate 87
== END 2025-06-12 08:29 | disposition home or self-care (01) ==
LOC: CARDOPNVT 08:28
PROVIDERS: PCP Family Medicine; Visit Provider Internal Medicine Cardiovascular Disease
DX: R07.9 Chest pain, unspecified (principal); I47.10 Supraventricular tachycardia, unspecified
CPT/HCPCS: 93248